=== PATIENT | female | born 1950 | race Caucasian/White ===

== ENCOUNTER 2022-12-08 11:20 | Inpatient (IN) | payer BC, OTHER ==
[~2022-12-08] VITALS: Ht 160 cm; Wt 73.9 kg
[~2022-12-08 11:20] MED LIST: LEVO88TA2 PO; TRIA80OI TP
[2022-12-08 11:31] VITALS: BP_SYST 153; PULSE 106; RESP 22; TEMP 97.5; O2SAT 98
[2022-12-08] MEDS ORDERED: ONDANSETRON 4 MG ODT TAB PO ONE (11:45)
[2022-12-08 12:19] LABS: BASOPHILS # (AUTO) 0.1 K/uL (0.0-0.2); BASOPHILS % (AUTO) 0.3 % (0.0-2.0); EOSINOPHILS # (AUTO) 0.5 K/uL (0.0-0.4); EOSINOPHILS % (AUTO) 2.4 % (0.0-4.0); HEMATOCRIT 42.3 % (36-48); HEMOGLOBIN 13.4 g/dL (12.0-16.0); LYMPHOCYTES # (AUTO) 0.3 K/uL (1.0-5.5); LYMPHOCYTES % (AUTO) 1.2 % (20.5-51.5); MEAN CORPUSCULAR HEMOGLOBIN 28 pg (27-31); MEAN CORPUSCULAR HGB CONC 32 % (32-36); MEAN CORPUSCULAR VOLUME 87 fL (79.0-98.0); MONOCYTES # (AUTO) 0.6 K/uL (0.0-1.0); MONOCYTES % (AUTO) 2.5 % (1.7-9.3); NEUTROPHILS # (AUTO) 20.7 K/uL (1.8-7.7); NEUTROPHILS % (AUTO) 93.6 % (40.0-70.0); PLATELET COUNT (AUTO) 193 K/uL (130-430); RED BLOOD CELL COUNT(AUTO) 4.88 MIL/uL (4.2-6.2); RED CELL DISTRIBUTION WIDTH 13.7 % (9.0-15.0); WHITE BLOOD COUNT (AUTO) 22.1 K/uL (4.8-10.8)
[2022-12-08 12:29] LABS: ANION GAP 10 (5-15); CALCIUM 8.7 mg/dL (8.4-11.0); CARBON DIOXIDE 28 mmol/L (23-29); CHLORIDE 101 mmol/L (98-107); CREATININE 1.45 mg/dL (0.55-1.30); GLUCOSE 182 mg/dL (74-106); POTASSIUM 3.8 mmol/L (3.5-5.1); SODIUM SERUM 139 mmol/L (136-145); UREA NITROGEN, BLOOD 37 mg/dL (8-21)
[2022-12-08 12:48] LABS: ACETONE, SERUM NEGATIVE (NEGATIVE)
[2022-12-08 13:02] LABS: INR 1.2 (0.8-1.2); PROTHROMBIN TIME 12.2 SECS (9.5-12.5)
[2022-12-08 13:07] LABS: ALANINE AMINOTRANSFERASE 6 U/L (12-78); ALBUMIN 3.1 g/dL (3.4-4.8); AMYLASE 19 U/L (0-100); ASPARTATE AMINOTRANSFERASE 13 U/L (10-37); LIPASE 32 U/L (73-393); TOTAL BILIRUBIN 0.6 mg/dL (0.0-1.0); TOTAL PROTEIN, SERUM 6.8 g/dL (6.4-8.3)
[2022-12-08] MEDS ORDERED: PIPERACILLIN/TAZO 4.5GM/DEX-IS 100 ML IV SCH (13:30)
[2022-12-08] MEDS ORDERED: NACL 0.9% 1,000 ML IV ONE (14:15)
[2022-12-08] MEDS ORDERED: D5/0.45 NS 1,000 ML IV ONE (14:15)
[2022-12-08] MEDS ORDERED: MORPHINE 2 MG/ML INJ. SYRINGE IVP ONE (14:15)
[2022-12-08] MEDS ORDERED: ACETAMINOPHEN 650 MG/20.3 ML UDC PO ONE (14:30)
[2022-12-08] MEDS ORDERED: ACETAMINOPHEN 325 MG TABLET PO ONE (14:30)
[2022-12-08 15:08] LABS: BILIRUBIN,URINE 2+ (NEGATIVE); BLOOD, URINE NEGATIVE (NEGATIVE); CLARITY/URINE HAZY (CLEAR); COLOR,URINE AMBER (YELLOW); GLUCOSE,URINE NEGATIVE (NEGATIVE); KETONES,URINE 2+ (NEGATIVE); LEUKOCYTE ESTERASE ,URINE 2+ (NEGATIVE); NITRITE, URINE NEGATIVE (NEGATIVE); PROTEIN URINE 2+ (NEGATIVE)
[2022-12-08 15:10] LABS: BACTERIA,URINE FEW /HPF (None Seen); MUCUS,URINE None Seen /LPF (None Seen); RBC,URINE 0-3 /HPF (0-3)
[2022-12-08] MEDS ORDERED: NALOXONE HCL 0.4 MG/ML AMP (NARCAN) IVP PRN (18:30)
[2022-12-08] MEDS ORDERED: MORPHINE 4 MG INJ. 4 MG/ML VIAL IVP PRN (18:30)
[2022-12-08] MEDS ORDERED: LORazepam 2 MG/ML VIAL IVP PRN (18:30)
[2022-12-08 20:00] VITALS: BP_SYST 111; PULSE 89; RESP 18; TEMP 98.4; O2SAT 96
[2022-12-08] MEDS ORDERED: NON-FORMULARY MEDICATION (Triamcinolone Acetonide 1 APPLIC) TP SCH (21:00)
[2022-12-08] MEDS ORDERED: cefTRIAXone 1 GM VIAL ONE (22:54)
[2022-12-08] MEDS: cefTRIAXone 1 GM in D5W 50 ML IV SCH (23:15)
[2022-12-08] MEDS: ONDANSETRON HCL 4 MG/2 ML VIAL IVP PRN (23:20)
[2022-12-08] MEDS: MORPHINE 2 MG/ML INJ. SYRINGE IVP PRN (23:22)
[2022-12-09] VITALS (7 sets, daily range): BP systolic 103–115; PULSE 83–100; RESP 14–18; TEMP 96.8–99.4; O2SAT 92–100
[2022-12-09 05:21] LABS: BASOPHILS # (AUTO) 0.1 K/uL (0.0-0.2); BASOPHILS % (AUTO) 0.4 % (0.0-2.0); EOSINOPHILS # (AUTO) 0.7 K/uL (0.0-0.4); EOSINOPHILS % (AUTO) 4.9 % (0.0-4.0); HEMOGLOBIN 11.7 g/dL (12.0-16.0); LYMPHOCYTES # (AUTO) 0.3 K/uL (1.0-5.5); LYMPHOCYTES % (AUTO) 1.8 % (20.5-51.5); MEAN CORPUSCULAR HEMOGLOBIN 27 pg (27-31); MEAN CORPUSCULAR HGB CONC 32 % (32-36); MEAN CORPUSCULAR VOLUME 87 fL (79.0-98.0); MONOCYTES # (AUTO) 0.6 K/uL (0.0-1.0); NEUTROPHILS # (AUTO) 12.9 K/uL (1.8-7.7); NEUTROPHILS % (AUTO) 88.9 % (40.0-70.0); PLATELET COUNT (AUTO) 165 K/uL (130-430); RED BLOOD CELL COUNT(AUTO) 4.28 MIL/uL (4.2-6.2); RED CELL DISTRIBUTION WIDTH 13.9 % (9.0-15.0); WHITE BLOOD COUNT (AUTO) 14.6 K/uL (4.8-10.8)
[2022-12-09 05:55] LABS: ANION GAP 10 (5-15); CALCIUM 7.9 mg/dL (8.4-11.0); CARBON DIOXIDE 25 mmol/L (23-29); CHLORIDE 106 mmol/L (98-107); CREATININE 1.73 mg/dL (0.55-1.30); GLUCOSE 115 mg/dL (74-106); PHOSPHORUS 3.8 mg/dL (2.7-4.5); POTASSIUM 3.9 mmol/L (3.5-5.1); SODIUM SERUM 141 mmol/L (136-145); UREA NITROGEN, BLOOD 41 mg/dL (8-21)
[2022-12-09] MEDS: ONDANSETRON HCL 4 MG/2 ML VIAL IVP PRN ×2 (06:49→17:57)
[2022-12-09] MEDS: MORPHINE 2 MG/ML INJ. SYRINGE IVP PRN (06:50)
[2022-12-09] MEDS ORDERED: LR 1,000 ML IV SCH (08:00)
[2022-12-09] MEDS: LIPASE/PROTEASE/AMYLASE 1 CAP PO SCH ×3 (10:22→18:32)
[2022-12-09] MEDS: LR 1,000 ML IV SCH (15:58)
[2022-12-09] MEDS: cefTRIAXone 1 GM in D5W 50 ML IV SCH (21:42)
[2022-12-10] MEDS: LR 1,000 ML IV SCH ×2 (03:28→11:45)
[2022-12-10] MEDS: ONDANSETRON HCL 4 MG/2 ML VIAL IVP PRN (03:37)
[2022-12-10 07:21] LABS: BASOPHILS # (AUTO) 0.1 K/uL (0.0-0.2); BASOPHILS % (AUTO) 0.6 % (0.0-2.0); EOSINOPHILS # (AUTO) 0.7 K/uL (0.0-0.4); EOSINOPHILS % (AUTO) 4.1 % (0.0-4.0); HEMATOCRIT 41.4 % (36-48); LYMPHOCYTES # (AUTO) 0.3 K/uL (1.0-5.5); LYMPHOCYTES % (AUTO) 1.9 % (20.5-51.5); MEAN CORPUSCULAR HEMOGLOBIN 27 pg (27-31); MEAN CORPUSCULAR HGB CONC 31 % (32-36); MEAN CORPUSCULAR VOLUME 87 fL (79.0-98.0); MONOCYTES # (AUTO) 0.3 K/uL (0.0-1.0); NEUTROPHILS # (AUTO) 14.8 K/uL (1.8-7.7); NEUTROPHILS % (AUTO) 91.4 % (40.0-70.0); PLATELET COUNT (AUTO) 201 K/uL (130-430); RED BLOOD CELL COUNT(AUTO) 4.76 MIL/uL (4.2-6.2); WHITE BLOOD COUNT (AUTO) 16.1 K/uL (4.8-10.8)
[2022-12-10 07:27] LABS: ERYTHROCYTE SEDIMENTATION RATE 9 MM/HR (0-20)
[2022-12-10 08:01] VITALS: BP_SYST 95; PULSE 104; RESP 16; TEMP 98; O2SAT 96
[2022-12-10 08:16] LABS: AMYLASE 30 U/L (0-100); ANION GAP 9 (5-15); CARBON DIOXIDE 27 mmol/L (23-29); CHLORIDE 106 mmol/L (98-107); CREATININE 1.76 mg/dL (0.55-1.30); GLUCOSE 104 mg/dL (74-106); LIPASE 76 U/L (73-393); PHOSPHORUS 3.4 mg/dL (2.7-4.5); POTASSIUM 4.1 mmol/L (3.5-5.1); SODIUM SERUM 142 mmol/L (136-145); UREA NITROGEN, BLOOD 38 mg/dL (8-21)
[2022-12-10] MEDS: LIPASE/PROTEASE/AMYLASE 1 CAP PO SCH ×3 (09:08→14:14)
[2022-12-10 12:00] VITALS: BP_SYST 144; PULSE 70; RESP 14; TEMP 96.7; O2SAT 96
[2022-12-10 13:32] VITALS: O2SAT 96
[2022-12-10 16:00] VITALS: BP_SYST 98; PULSE 74; RESP 14; TEMP 96.7; O2SAT 96
[2022-12-10 19:00] VITALS: BP_SYST 105; PULSE 97; RESP 18; TEMP 98.5; O2SAT 96
[2022-12-10 20:00] VITALS: BP_SYST 105; PULSE 97; RESP 18; TEMP 98.5; O2SAT 96
[2022-12-10] MEDS ORDERED: metroNIDAZOLE 500 mg/NS 100 ML IV SCH (21:00)
[2022-12-10] MEDS: cefTRIAXone 1 GM in D5W 50 ML IV SCH (21:04)
[2022-12-11 00:10] VITALS: BP_SYST 108; PULSE 84; RESP 18; TEMP 97; O2SAT 93
[2022-12-11] MEDS: LR 1,000 ML IV SCH ×3 (00:40→17:45)
[2022-12-11 05:19] LABS: BASOPHILS % (AUTO) 0.2 % (0.0-2.0); EOSINOPHILS # (AUTO) 0.7 K/uL (0.0-0.4); HEMATOCRIT 41.3 % (36-48); LYMPHOCYTES # (AUTO) 0.2 K/uL (1.0-5.5); MEAN CORPUSCULAR HEMOGLOBIN 27 pg (27-31); MEAN CORPUSCULAR HGB CONC 31 % (32-36); MEAN CORPUSCULAR VOLUME 87 fL (79.0-98.0); MONOCYTES # (AUTO) 0.4 K/uL (0.0-1.0); MONOCYTES % (AUTO) 1.9 % (1.7-9.3); NEUTROPHILS # (AUTO) 17.4 K/uL (1.8-7.7); NEUTROPHILS % (AUTO) 92.9 % (40.0-70.0); PLATELET COUNT (AUTO) 192 K/uL (130-430); RED BLOOD CELL COUNT(AUTO) 4.78 MIL/uL (4.2-6.2); RED CELL DISTRIBUTION WIDTH 13.8 % (9.0-15.0); WHITE BLOOD COUNT (AUTO) 18.8 K/uL (4.8-10.8)
[2022-12-11] MEDS: MORPHINE 2 MG/ML INJ. SYRINGE IVP PRN (05:25)
[2022-12-11] MEDS: ONDANSETRON HCL 4 MG/2 ML VIAL IVP PRN (05:26)
[2022-12-11 05:55] LABS: ALANINE AMINOTRANSFERASE 3 U/L (12-78); ALBUMIN 2.4 g/dL (3.4-4.8); AMYLASE 14 U/L (0-100); ANION GAP 10 (5-15); ASPARTATE AMINOTRANSFERASE 10 U/L (10-37); CARBON DIOXIDE 27 mmol/L (23-29); CHLORIDE 104 mmol/L (98-107); CREATININE 1.54 mg/dL (0.55-1.30); GLUCOSE 131 mg/dL (74-106); LIPASE 17 U/L (73-393); PHOSPHORUS 2.7 mg/dL (2.7-4.5); POTASSIUM 3.7 mmol/L (3.5-5.1); SODIUM SERUM 141 mmol/L (136-145); TOTAL BILIRUBIN 0.4 mg/dL (0.0-1.0); TOTAL PROTEIN, SERUM 5.7 g/dL (6.4-8.3); UREA NITROGEN, BLOOD 38 mg/dL (8-21)
[2022-12-11 05:56] LABS: ERYTHROCYTE SEDIMENTATION RATE 5 MM/HR (0-20)
[2022-12-11] MEDS: LIPASE/PROTEASE/AMYLASE 1 CAP PO SCH ×3 (08:00→19:00)
[2022-12-11] MEDS ORDERED: METOCLOPRAMIDE HCL 10 MG/2 ML VIAL IVP ONE (08:30)
[2022-12-11 08:37] VITALS: BP_SYST 118; PULSE 82; RESP 16; TEMP 97.2; O2SAT 94
[2022-12-11] MEDS: PIPERACILLIN/TAZO 2.25G/DEX-IS 50 ML IV SCH ×2 (13:23→18:59)
[2022-12-11] MEDS: FLUCONAZOLE 200 mg/ NS 100 ML IV SCH (13:23)
[2022-12-11] MEDS: METOCLOPRAMIDE HCL 10 MG/2 ML VIAL IVP SCH ×2 (15:55→22:03)
[2022-12-11 15:56] LABS: INR 1.4 (0.8-1.2); PROTHROMBIN TIME 13.8 SECS (9.5-12.5)
[2022-12-11 20:00] VITALS: BP_SYST 102; PULSE 98; RESP 16; TEMP 98.4; O2SAT 98
[2022-12-12] VITALS (7 sets, daily range): BP systolic 93–115; PULSE 77–108; RESP 16–18; TEMP 97.1–98.9; O2SAT 94–96
[2022-12-12] MEDS: PIPERACILLIN/TAZO 2.25G/DEX-IS 50 ML IV SCH ×5 (00:19→23:51)
[2022-12-12] MEDS: LR 1,000 ML IV SCH ×3 (00:21→22:41)
[2022-12-12] MEDS: MORPHINE 2 MG/ML INJ. SYRINGE IVP PRN (04:47)
[2022-12-12] MEDS: METOCLOPRAMIDE HCL 10 MG/2 ML VIAL IVP SCH ×3 (05:26→21:24)
[2022-12-12 05:57] LABS: BASOPHILS # (AUTO) 0.2 K/uL (0.0-0.2); BASOPHILS % (AUTO) 0.7 % (0.0-2.0); EOSINOPHILS # (AUTO) 1.1 K/uL (0.0-0.4); EOSINOPHILS % (AUTO) 4.6 % (0.0-4.0); HEMATOCRIT 41.3 % (36-48); HEMOGLOBIN 13.1 g/dL (12.0-16.0); LYMPHOCYTES # (AUTO) 0.2 K/uL (1.0-5.5); LYMPHOCYTES % (AUTO) 0.7 % (20.5-51.5); MEAN CORPUSCULAR HEMOGLOBIN 27 pg (27-31); MEAN CORPUSCULAR HGB CONC 32 % (32-36); MEAN CORPUSCULAR VOLUME 86 fL (79.0-98.0); MONOCYTES # (AUTO) 0.7 K/uL (0.0-1.0); MONOCYTES % (AUTO) 2.9 % (1.7-9.3); NEUTROPHILS # (AUTO) 20.9 K/uL (1.8-7.7); NEUTROPHILS % (AUTO) 91.1 % (40.0-70.0); PLATELET COUNT (AUTO) 227 K/uL (130-430); RED BLOOD CELL COUNT(AUTO) 4.81 MIL/uL (4.2-6.2); RED CELL DISTRIBUTION WIDTH 13.9 % (9.0-15.0)
[2022-12-12 06:09] LABS: ANION GAP 10 (5-15); CALCIUM 8.1 mg/dL (8.4-11.0); CARBON DIOXIDE 26 mmol/L (23-29); CHLORIDE 103 mmol/L (98-107); CREATININE 1.52 mg/dL (0.55-1.30); GLUCOSE 134 mg/dL (74-106); POTASSIUM 3.9 mmol/L (3.5-5.1); SODIUM SERUM 139 mmol/L (136-145); UREA NITROGEN, BLOOD 37 mg/dL (8-21)
[2022-12-12] MEDS: LIPASE/PROTEASE/AMYLASE 1 CAP PO SCH ×3 (08:51→18:13)
[2022-12-12] MEDS: FLUCONAZOLE 200 mg/ NS 100 ML IV SCH (14:45)
[2022-12-12] MEDS ORDERED: fentaNYL CITRATE/PF 100 MCG/2 ML AMP ONE (15:15)
[2022-12-12] MEDS ORDERED: ROCURONIUM BROMIDE 10 MG/ML (ZEMURON) ONE (15:15)
[2022-12-12] MEDS ORDERED: GLYCOPYRROLATE 0.2 MG/ML VIAL ONE (15:15)
[2022-12-12] MEDS ORDERED: NS 100 ML BAG ONE (15:15)
[2022-12-12] MEDS ORDERED: PROPOFOL 200MG/ 20ML VIAL (DIPRIVAN) IV ONE (15:15)
[2022-12-12] MEDS ORDERED: NS 1000 ML IV.SOLN IV ONE (15:15)
[2022-12-12] MEDS ORDERED: LIDOCAINE/EPI 1% 1:100000 20 ML VIAL ONE (15:15)
[2022-12-12] MEDS ORDERED: WATER FOR IRRIGATION,STERILE 1,000 ML IRRIG.SOLN IR ONE (15:15)
[2022-12-12] MEDS ORDERED: MIDAZOLAM HCL 2 MG/2 ML VIAL (VERSED) ONE (15:15)
[2022-12-12] MEDS ORDERED: SEVOFLURANE 15 MIN GAS INH ONE (15:15)
[2022-12-12] MEDS ORDERED: NEOSTIGMINE METHYLSULFATE 1 MG/ML, 10 ML VIAL ONE (15:15)
[2022-12-12] MEDS ORDERED: BUPIVACAINE /PF 0.25% 30 ML VIAL INJ ONE (15:15)
[2022-12-12] MEDS ORDERED: fentaNYL CITRATE/PF 100 MCG/2 ML AMP IVP PRN ×2 (16:00)
[2022-12-12] MEDS ORDERED: METOCLOPRAMIDE HCL 10 MG/2 ML VIAL IVP PRN (16:00)
[2022-12-12] MEDS ORDERED: ONDANSETRON HCL 4 MG/2 ML VIAL IVP PRN (16:00)
[2022-12-12] MEDS ORDERED: HYDROmorphone 1 MG/ML INJ. CARTRIDGE IM PRN (16:45)
[2022-12-12] MEDS: HYDROcodone/ACETAMIN 5-325 MG TAB (NORCO/ VICODIN) PO PRN (18:27)
[2022-12-13] MEDS: HYDROcodone/ACETAMIN 5-325 MG TAB (NORCO/ VICODIN) PO PRN (00:17)
[2022-12-13 00:22] VITALS: BP_SYST 95; PULSE 83; RESP 18; TEMP 97; O2SAT 96
[2022-12-13] MEDS: PIPERACILLIN/TAZO 2.25G/DEX-IS 50 ML IV SCH ×4 (05:13→23:04)
[2022-12-13] MEDS: METOCLOPRAMIDE HCL 10 MG/2 ML VIAL IVP SCH ×3 (05:13→22:12)
[2022-12-13 08:00] VITALS: BP_SYST 115; PULSE 96; RESP 18; TEMP 98.1; O2SAT 92
[2022-12-13] MEDS: LIPASE/PROTEASE/AMYLASE 1 CAP PO SCH ×3 (08:57→18:01)
[2022-12-13] MEDS ORDERED: ENOXAPARIN SODIUM 30 MG/0.3 ML SYRINGE SUBCUT ONE (09:15)
[2022-12-13] MEDS: LR 1,000 ML IV SCH ×2 (11:20→19:45)
[2022-12-13 12:00] VITALS: BP_SYST 120; PULSE 90; RESP 18; TEMP 97.5; O2SAT 94
[2022-12-13 13:47] LABS: BASOPHILS % (AUTO) 0.2 % (0.0-2.0); EOSINOPHILS # (AUTO) 1.2 K/uL (0.0-0.4); EOSINOPHILS % (AUTO) 6.4 % (0.0-4.0); HEMATOCRIT 37.8 % (36-48); HEMOGLOBIN 11.8 g/dL (12.0-16.0); LYMPHOCYTES # (AUTO) 0.2 K/uL (1.0-5.5); LYMPHOCYTES % (AUTO) 1.2 % (20.5-51.5); MEAN CORPUSCULAR HEMOGLOBIN 27 pg (27-31); MEAN CORPUSCULAR HGB CONC 31 % (32-36); MEAN CORPUSCULAR VOLUME 86 fL (79.0-98.0); MONOCYTES # (AUTO) 0.5 K/uL (0.0-1.0); MONOCYTES % (AUTO) 2.7 % (1.7-9.3); NEUTROPHILS # (AUTO) 16.8 K/uL (1.8-7.7); NEUTROPHILS % (AUTO) 89.5 % (40.0-70.0); PLATELET COUNT (AUTO) 181 K/uL (130-430); RED BLOOD CELL COUNT(AUTO) 4.38 MIL/uL (4.2-6.2); RED CELL DISTRIBUTION WIDTH 14.4 % (9.0-15.0); WHITE BLOOD COUNT (AUTO) 18.7 K/uL (4.8-10.8)
[2022-12-13 14:00] LABS: ALANINE AMINOTRANSFERASE 16 U/L (12-78); ALBUMIN 2.2 g/dL (3.4-4.8); ANION GAP 11 (5-15); ASPARTATE AMINOTRANSFERASE 22 U/L (10-37); CALCIUM 7.5 mg/dL (8.4-11.0); CARBON DIOXIDE 24 mmol/L (23-29); CHLORIDE 101 mmol/L (98-107); CREATININE 1.68 mg/dL (0.55-1.30); GLUCOSE 153 mg/dL (74-106); POTASSIUM 3.8 mmol/L (3.5-5.1); SODIUM SERUM 136 mmol/L (136-145); TOTAL BILIRUBIN 0.5 mg/dL (0.0-1.0); UREA NITROGEN, BLOOD 38 mg/dL (8-21)
[2022-12-13] MEDS: FLUCONAZOLE 200 mg/ NS 100 ML IV SCH (14:03)
[2022-12-13 16:00] VITALS: BP_SYST 117; PULSE 92; RESP 18; TEMP 97.9; O2SAT 94
[2022-12-13 19:00] VITALS: BP_SYST 99; PULSE 103; RESP 16; TEMP 98.2; O2SAT 94
[2022-12-13 20:00] VITALS: BP_SYST 99; PULSE 103; RESP 16; TEMP 98.2; O2SAT 94
[2022-12-14 00:17] VITALS: BP_SYST 107; PULSE 89; RESP 18; TEMP 96.5; O2SAT 93
[2022-12-14] MEDS: LR 1,000 ML IV SCH (03:37)
[2022-12-14 04:07] LABS: QUANTIFERON TB GOLD Indeterminate (Negative)
[2022-12-14 04:33] LABS: BASOPHILS # (AUTO) 0.1 K/uL (0.0-0.2); BASOPHILS % (AUTO) 0.4 % (0.0-2.0); EOSINOPHILS # (AUTO) 1.1 K/uL (0.0-0.4); EOSINOPHILS % (AUTO) 6.2 % (0.0-4.0); HEMATOCRIT 37.2 % (36-48); HEMOGLOBIN 11.8 g/dL (12.0-16.0); LYMPHOCYTES # (AUTO) 0.2 K/uL (1.0-5.5); LYMPHOCYTES % (AUTO) 1.1 % (20.5-51.5); MEAN CORPUSCULAR HEMOGLOBIN 27 pg (27-31); MEAN CORPUSCULAR HGB CONC 32 % (32-36); MEAN CORPUSCULAR VOLUME 86 fL (79.0-98.0); MONOCYTES # (AUTO) 0.4 K/uL (0.0-1.0); MONOCYTES % (AUTO) 2.5 % (1.7-9.3); NEUTROPHILS # (AUTO) 15.9 K/uL (1.8-7.7); NEUTROPHILS % (AUTO) 89.8 % (40.0-70.0); PLATELET COUNT (AUTO) 188 K/uL (130-430); RED BLOOD CELL COUNT(AUTO) 4.34 MIL/uL (4.2-6.2); RED CELL DISTRIBUTION WIDTH 14.3 % (9.0-15.0); WHITE BLOOD COUNT (AUTO) 17.7 K/uL (4.8-10.8)
[2022-12-14 04:53] LABS: ANION GAP 10 (5-15); CALCIUM 7.3 mg/dL (8.4-11.0); CARBON DIOXIDE 25 mmol/L (23-29); CHLORIDE 102 mmol/L (98-107); CREATININE 1.42 mg/dL (0.55-1.30); GLUCOSE 118 mg/dL (74-106); POTASSIUM 3.9 mmol/L (3.5-5.1); SODIUM SERUM 137 mmol/L (136-145); UREA NITROGEN, BLOOD 37 mg/dL (8-21)
[2022-12-14] MEDS: PIPERACILLIN/TAZO 2.25G/DEX-IS 50 ML IV SCH ×2 (06:48→11:24)
[2022-12-14] MEDS: METOCLOPRAMIDE HCL 10 MG/2 ML VIAL IVP SCH ×2 (06:49→16:40)
[2022-12-14 08:00] VITALS: BP_SYST 109; PULSE 100; RESP 16; TEMP 96.5; O2SAT 94
[2022-12-14] MEDS: LIPASE/PROTEASE/AMYLASE 1 CAP PO SCH ×2 (08:05→12:25)
[2022-12-14] MEDS ORDERED: ENOXAPARIN SODIUM 30 MG/0.3 ML SYRINGE SUBCUT SCH (09:00)
[2022-12-14 12:30] VITALS: BP_SYST 116; PULSE 97; RESP 18; TEMP 97.5; O2SAT 96
[2022-12-14] MEDS: FLUCONAZOLE 200 mg/ NS 100 ML IV SCH (12:42)
[2022-12-14 12:56] VITALS: O2SAT 94
[2022-12-14] MEDS ORDERED: FLUC100T41 PO (14:19)
[2022-12-14 17:44] VITALS: BP_SYST 109; PULSE 107; RESP 16; TEMP 96.5
[2022-12-15 17:06] LABS: COCCIDIOIDES AB IGG 0.1 IV (<=0.9)
== END 2022-12-14 18:10 | disposition home or self-care (01) | DRG 853 ==
LOC: SED 11:20 → SMU 14:13
PROVIDERS: ADMIT Specialist; ATTEND Specialist
PROC: 0DNU4ZZ Release Omentum, Percutaneous Endoscopic Approach (ICD-10-PCS; 2022-12-12)
PROC: BF13YZZ Fluoroscopy of Gallbladder and Bile Ducts using Other Contrast (ICD-10-PCS; 2022-12-12)
PROC: 0FT44ZZ Resection of Gallbladder, Percutaneous Endoscopic Approach (ICD-10-PCS; principal; 2022-12-12 15:35)
DX: A41.9 Sepsis, unspecified organism (principal); K85.10 Biliary acute pancreatitis without necrosis or infection; N17.0 Acute kidney failure with tubular necrosis; N39.0 Urinary tract infection, site not specified; K80.00 Calculus of gallbladder with acute cholecystitis without obstruction; E03.9 Hypothyroidism, unspecified; E83.41 Hypermagnesemia; E83.51 Hypocalcemia; E83.52 Hypercalcemia; R59.1 Generalized enlarged lymph nodes; R73.9 Hyperglycemia, unspecified; Z88.8 Allergy status to other drugs, medicaments and biological substances
CPT/HCPCS: 36415; 70490; 71045; 71250-TC; 74181; 76000; 76376; 76700-TC; 78226; 80048; 80053; 81000; 82009; 82150; 83605; 83615; 83690; 83735; 84100; 84484; 85025; 85610-TC; 85651-TC; 85730-TC; 86301; 86480; 86635; 87040; 87081; 87086; 87305; 88304; 93005; 97110-GP; 97116-GP; 97530-GP; 99285; A9537; C1727; C1758; J0696; J1450; J1650; J2270; J2405; J2543; J2704; J2710; J2765; J3010; J3465; J3490; J7030; J7060; J7120; Q0162; Q9967

== ENCOUNTER 2023-01-05 11:31 | Emergency (ER) | payer OTHER ==
[~2023-01-05] VITALS: Ht 162.6 cm; Wt 72.6 kg
[~2023-01-05 11:31] MED LIST changes: +FLUC100T41 PO; -TRIA80OI TP
[2023-01-05 12:28] VITALS: BP_SYST 121; PULSE 105; RESP 18; TEMP 97.9; O2SAT 97
[2023-01-05] MEDS ORDERED: NACL 0.9% 1,000 ML IV ONE (12:30)
[2023-01-05] MEDS ORDERED: HYDR200T80 PO (12:37)
[2023-01-05] MEDS ORDERED: PRED20TA PO (14:03)
[2023-01-05] MEDS ORDERED: IBUP-1969 PO (14:03)
[2023-01-05 15:15] VITALS: BP_SYST 104; PULSE 99; RESP 22; TEMP 97.9; O2SAT 95
== END 2023-01-05 15:17 | disposition home or self-care (01) ==
LOC: SED 11:31
DX: J02.9 Acute pharyngitis, unspecified (principal); R00.2 Palpitations; R05.9 Cough, unspecified; R42 Dizziness and giddiness; Z88.1 Allergy status to other antibiotic agents; Z91.012 Allergy to eggs; Z79.899 Other long term (current) drug therapy
CPT/HCPCS: 99283; 96360; 93005; J7030

== ENCOUNTER 2023-01-12 14:43 | Inpatient (IN) | payer OTHER ==
[~2023-01-12] VITALS: Ht 160 cm; Wt 86.7 kg
[~2023-01-12 14:43] MED LIST changes: +HYDR200T80 PO; +IBUP-1969 PO; +PRED20TA PO
[2023-01-12 15:04] VITALS: BP_SYST 127; PULSE 86; RESP 18; TEMP 98.7
[2023-01-12 15:55] LABS: BASOPHILS # (AUTO) 0.1 K/uL (0.0-0.2); BASOPHILS % (AUTO) 0.9 % (0.0-2.0); EOSINOPHILS # (AUTO) 0.9 K/uL (0.0-0.4); EOSINOPHILS % (AUTO) 8.2 % (0.0-4.0); HEMATOCRIT 34.2 % (36-48); LYMPHOCYTES # (AUTO) 0.7 K/uL (1.0-5.5); LYMPHOCYTES % (AUTO) 6.1 % (20.5-51.5); MEAN CORPUSCULAR HEMOGLOBIN 27 pg (27-31); MEAN CORPUSCULAR HGB CONC 32 % (32-36); MEAN CORPUSCULAR VOLUME 83 fL (79.0-98.0); MONOCYTES # (AUTO) 0.3 K/uL (0.0-1.0); MONOCYTES % (AUTO) 2.5 % (1.7-9.3); NEUTROPHILS # (AUTO) 9.4 K/uL (1.8-7.7); NEUTROPHILS % (AUTO) 82.3 % (40.0-70.0); PLATELET COUNT (AUTO) 147 K/uL (130-430); RED BLOOD CELL COUNT(AUTO) 4.12 MIL/uL (4.2-6.2); RED CELL DISTRIBUTION WIDTH 16.3 % (9.0-15.0); WHITE BLOOD COUNT (AUTO) 11.5 K/uL (4.8-10.8)
[2023-01-12 16:04] LABS: ANION GAP 6 (5-15); CALCIUM 8.4 mg/dL (8.4-11.0); CARBON DIOXIDE 30 mmol/L (23-29); CHLORIDE 102 mmol/L (98-107); CREATININE 0.93 mg/dL (0.55-1.30); GLUCOSE 131 mg/dL (74-106); SODIUM SERUM 138 mmol/L (136-145); UREA NITROGEN, BLOOD 20 mg/dL (8-21)
[2023-01-12 16:06] LABS: INR 1.1 (0.8-1.2); PROTHROMBIN TIME 11.7 SECS (9.5-12.5)
[2023-01-12 16:09] LABS: ALANINE AMINOTRANSFERASE 12 U/L (12-78); ALBUMIN 2.8 g/dL (3.4-4.8); ASPARTATE AMINOTRANSFERASE 11 U/L (10-37); LIPASE 57 U/L (73-393); TOTAL BILIRUBIN 0.6 mg/dL (0.0-1.0); TOTAL PROTEIN, SERUM 5.8 g/dL (6.4-8.3)
[2023-01-12 17:37] LABS: BILIRUBIN,URINE NEGATIVE (NEGATIVE); BLOOD, URINE NEGATIVE (NEGATIVE); CLARITY/URINE Clear (CLEAR); COLOR,URINE YELLOW (YELLOW); GLUCOSE,URINE NEGATIVE (NEGATIVE); KETONES,URINE NEGATIVE (NEGATIVE); LEUKOCYTE ESTERASE ,URINE NEGATIVE (NEGATIVE); NITRITE, URINE NEGATIVE (NEGATIVE); PROTEIN URINE NEGATIVE (NEGATIVE); UROBILINOGEN,URINE 0.2 (0.2-1.0)
[2023-01-12] MEDS ORDERED: LEVO112T5 PO (18:19)
[2023-01-12] MEDS ORDERED: IBUP-1969 PO (18:19)
[2023-01-12] MEDS ORDERED: HYDR200T38 PO (18:19)
[2023-01-12] MEDS ORDERED: FURO20TA4 PO (18:19)
[2023-01-12] MEDS ORDERED: ONDA-8 PO (18:20)
[2023-01-12 20:00] VITALS: BP_SYST 167; PULSE 72; RESP 17; TEMP 98.2
[2023-01-12] MEDS ORDERED: HEPARIN SODIUM,PORCINE 5,000 UNITS/ML VIAL IVP ONE (20:00)
[2023-01-12] MEDS ORDERED: HEPARIN 25,000 UNITS/D5W 250ML 250 ML IV ONE (20:00)
[2023-01-12 22:28] VITALS: BP_SYST 157; PULSE 72; RESP 16; TEMP 98.2
[2023-01-13 00:02] VITALS: BP_SYST 160; PULSE 71; RESP 14; TEMP 96.3; O2SAT 93
[2023-01-13] MEDS ORDERED: HEPARIN SODIUM, PORCINE 10,000 UNITS/ 10 ML VIAL IV ONE (04:30)
[2023-01-13] MEDS ORDERED: HEPARIN SODIUM,PORCINE 5,000 UNITS/ML VIAL ONE (04:52)
[2023-01-13] MEDS ORDERED: HEPARIN SODIUM,PORCINE 5,000 UNITS/ML VIAL SUBCUT ONE (05:00)
[2023-01-13] MEDS: HEPARIN 25,000 UNITS/D5W 250ML 250 ML IV PRN ×5 (05:47→20:11)
[2023-01-13] MEDS ORDERED: HEPARIN SODIUM,PORCINE 5,000 UNITS/ML VIAL IVP ONE (06:00)
[2023-01-13 08:00] VITALS: BP_SYST 158; PULSE 76; RESP 20; TEMP 98.4; O2SAT 95
[2023-01-13] MEDS ORDERED: HEPARIN 25,000 UNITS/D5W 250ML 250 ML IV PRN (10:00)
[2023-01-13] MEDS ORDERED: iohexoL 350 mgI/mL, 100 ML INFUS..BTL IV ONE (10:03)
[2023-01-13] MEDS: ACETAMINOPHEN 500 MG TABLET PO PRN ×2 (10:25→22:07)
[2023-01-13] MEDS ORDERED: HEPARIN SODIUM,PORCINE 2000 UNITS/0.4 ML BOLUS IVP PRN (10:30)
[2023-01-13] MEDS ORDERED: HEPARIN SODIUM,PORCINE 3000 UNITS/0.6 ML BOLUS IVP PRN (10:30)
[2023-01-13] MEDS ORDERED: *HEPARIN PER PHARMACY XX PRN (10:30)
[2023-01-13 11:30] VITALS: BP_SYST 141; PULSE 78; RESP 20; TEMP 97.9; O2SAT 94
[2023-01-13 18:25] VITALS: BP_SYST 133; PULSE 82; RESP 20; TEMP 99.4; O2SAT 94
[2023-01-13 19:30] VITALS: O2SAT 100; O2SAT 4
[2023-01-13 19:40] VITALS: BP_SYST 137; BP_SYST 142; PULSE 86; PULSE 92; RESP 16; RESP 18; TEMP 97; TEMP 97.6; O2SAT 100; O2SAT 93
[2023-01-14] VITALS: BP_SYST 149; PULSE 68; RESP 18; TEMP 97.9; O2SAT 93
[2023-01-14] MEDS: ACETAMINOPHEN 500 MG TABLET PO PRN (05:29)
[2023-01-14 07:22] LABS: BASOPHILS # (AUTO) 0.1 K/uL (0.0-0.2); EOSINOPHILS # (AUTO) 1.1 K/uL (0.0-0.4); EOSINOPHILS % (AUTO) 9.3 % (0.0-4.0); HEMATOCRIT 34.9 % (36-48); HEMOGLOBIN 11.2 g/dL (12.0-16.0); LYMPHOCYTES # (AUTO) 0.6 K/uL (1.0-5.5); LYMPHOCYTES % (AUTO) 5.2 % (20.5-51.5); MEAN CORPUSCULAR HEMOGLOBIN 27 pg (27-31); MEAN CORPUSCULAR HGB CONC 32 % (32-36); MEAN CORPUSCULAR VOLUME 83 fL (79.0-98.0); MONOCYTES # (AUTO) 0.2 K/uL (0.0-1.0); MONOCYTES % (AUTO) 1.8 % (1.7-9.3); NEUTROPHILS # (AUTO) 9.8 K/uL (1.8-7.7); NEUTROPHILS % (AUTO) 82.7 % (40.0-70.0); PLATELET COUNT (AUTO) 133 K/uL (130-430); RED BLOOD CELL COUNT(AUTO) 4.19 MIL/uL (4.2-6.2); RED CELL DISTRIBUTION WIDTH 16.7 % (9.0-15.0); WHITE BLOOD COUNT (AUTO) 11.9 K/uL (4.8-10.8)
[2023-01-14 07:28] LABS: ANION GAP 6 (5-15); CALCIUM 8.4 mg/dL (8.4-11.0); CARBON DIOXIDE 31 mmol/L (23-29); CHLORIDE 101 mmol/L (98-107); CREATININE 0.74 mg/dL (0.55-1.30); GLUCOSE 114 mg/dL (74-106); LACTATE DEHYDROGENASE 272 U/L (81-234); POTASSIUM 3.6 mmol/L (3.5-5.1); SODIUM SERUM 138 mmol/L (136-145); UREA NITROGEN, BLOOD 8 mg/dL (8-21)
[2023-01-14 07:57] VITALS: BP_SYST 150; PULSE 78; RESP 16; TEMP 97.9; O2SAT 78
[2023-01-14 08:00] VITALS: O2SAT 96
[2023-01-14] MEDS: HEPARIN 25,000 UNITS/D5W 250ML 250 ML IV PRN ×3 (09:54→17:09)
[2023-01-14 12:00] VITALS: BP_SYST 155; PULSE 66; RESP 18; TEMP 98.7; O2SAT 98
[2023-01-14 16:00] VITALS: BP_SYST 148; PULSE 68; RESP 18; TEMP 98.3; O2SAT 99
[2023-01-14 19:25] VITALS: BP_SYST 136; PULSE 84; RESP 18; TEMP 96.8; O2SAT 97; O2SAT 98
[2023-01-15] VITALS (7 sets, daily range): BP systolic 113–138; PULSE 70–88; RESP 16–19; TEMP 97.6–98.8; O2SAT 96–99
[2023-01-15] MEDS: HEPARIN 25,000 UNITS/D5W 250ML 250 ML IV PRN ×3 (01:10→10:37)
[2023-01-15 08:03] LABS: BASOPHILS # (AUTO) 0.1 K/uL (0.0-0.2); BASOPHILS % (AUTO) 0.7 % (0.0-2.0); EOSINOPHILS # (AUTO) 1.8 K/uL (0.0-0.4); HEMATOCRIT 33.8 % (36-48); HEMOGLOBIN 10.8 g/dL (12.0-16.0); LYMPHOCYTES # (AUTO) 0.6 K/uL (1.0-5.5); LYMPHOCYTES % (AUTO) 4.3 % (20.5-51.5); MEAN CORPUSCULAR HEMOGLOBIN 27 pg (27-31); MEAN CORPUSCULAR HGB CONC 32 % (32-36); MEAN CORPUSCULAR VOLUME 83 fL (79.0-98.0); MONOCYTES # (AUTO) 0.3 K/uL (0.0-1.0); MONOCYTES % (AUTO) 2.4 % (1.7-9.3); NEUTROPHILS # (AUTO) 11.4 K/uL (1.8-7.7); NEUTROPHILS % (AUTO) 79.6 % (40.0-70.0); PLATELET COUNT (AUTO) 133 K/uL (130-430); RED BLOOD CELL COUNT(AUTO) 4.08 MIL/uL (4.2-6.2); RED CELL DISTRIBUTION WIDTH 16.8 % (9.0-15.0); WHITE BLOOD COUNT (AUTO) 14.3 K/uL (4.8-10.8)
[2023-01-15 08:09] LABS: ANION GAP 5 (5-15); CALCIUM 7.9 mg/dL (8.4-11.0); CARBON DIOXIDE 30 mmol/L (23-29); CHLORIDE 101 mmol/L (98-107); CREATININE 0.67 mg/dL (0.55-1.30); GLUCOSE 111 mg/dL (74-106); POTASSIUM 3.6 mmol/L (3.5-5.1); SODIUM SERUM 136 mmol/L (136-145); UREA NITROGEN, BLOOD 6 mg/dL (8-21)
[2023-01-15] MEDS: guaiFENesin/DEXTROMETHORPHAN 10 ML UDC PO PRN (23:15)
[2023-01-16 00:59] VITALS: BP_SYST 134; PULSE 74; RESP 16; TEMP 98.5; O2SAT 99
[2023-01-16 07:44] LABS: BASOPHILS # (AUTO) 0.1 K/uL (0.0-0.2); BASOPHILS % (AUTO) 0.8 % (0.0-2.0); EOSINOPHILS # (AUTO) 1.9 K/uL (0.0-0.4); EOSINOPHILS % (AUTO) 14.9 % (0.0-4.0); HEMOGLOBIN 10.2 g/dL (12.0-16.0); LYMPHOCYTES # (AUTO) 0.4 K/uL (1.0-5.5); LYMPHOCYTES % (AUTO) 3.1 % (20.5-51.5); MEAN CORPUSCULAR HEMOGLOBIN 27 pg (27-31); MEAN CORPUSCULAR HGB CONC 32 % (32-36); MEAN CORPUSCULAR VOLUME 84 fL (79.0-98.0); MONOCYTES # (AUTO) 0.3 K/uL (0.0-1.0); MONOCYTES % (AUTO) 2.5 % (1.7-9.3); NEUTROPHILS # (AUTO) 10.3 K/uL (1.8-7.7); NEUTROPHILS % (AUTO) 78.7 % (40.0-70.0); PLATELET COUNT (AUTO) 121 K/uL (130-430); RED BLOOD CELL COUNT(AUTO) 3.84 MIL/uL (4.2-6.2); RED CELL DISTRIBUTION WIDTH 17.3 % (9.0-15.0)
[2023-01-16 07:48] LABS: ERYTHROCYTE SEDIMENTATION RATE 8 MM/HR (0-20)
[2023-01-16 07:52] LABS: ANION GAP 7 (5-15); CALCIUM 7.6 mg/dL (8.4-11.0); CARBON DIOXIDE 29 mmol/L (23-29); CHLORIDE 102 mmol/L (98-107); GLUCOSE 109 mg/dL (74-106); POTASSIUM 3.1 mmol/L (3.5-5.1); SODIUM SERUM 138 mmol/L (136-145); UREA NITROGEN, BLOOD 5 mg/dL (8-21)
[2023-01-16 08:00] VITALS: BP_SYST 122; PULSE 78; RESP 18; TEMP 98.6; O2SAT 99
[2023-01-16] MEDS ORDERED: POTASSIUM CHLORIDE 20 MEQ TAB.PRT.SR PO ONE (10:15)
[2023-01-16] MEDS ORDERED: DIPHENHYDRAMINE INJ 50 MG/ML VIAL ONE (10:45)
[2023-01-16] MEDS ORDERED: SEVOFLURANE 15 MIN GAS INH ONE (10:45)
[2023-01-16] MEDS ORDERED: DEXAMETHASONE SOD PHOSPHATE 4 MG/ML VIAL ONE (10:45)
[2023-01-16] MEDS ORDERED: NS 1000 ML IV.SOLN IV ONE (10:45)
[2023-01-16] MEDS ORDERED: NS IRRIG SOLN 1000 ML IR ONE (10:45)
[2023-01-16] MEDS ORDERED: ONDANSETRON HCL 4 MG/2 ML VIAL ONE (10:45)
[2023-01-16] MEDS ORDERED: ETOMIDATE 20 MG/ 10 ML VIAL (AMIDATE) ONE (10:45)
[2023-01-16] MEDS ORDERED: ONDANSETRON HCL 4 MG/2 ML VIAL IVP PRN (11:45)
[2023-01-16] MEDS ORDERED: NALOXONE HCL 0.4 MG/ML AMP (NARCAN) IVP PRN (11:45)
[2023-01-16] MEDS ORDERED: HYDROmorphone 1 MG/ML INJ. CARTRIDGE IVP PRN (11:45)
[2023-01-16] MEDS ORDERED: ACETAMINOPHEN I.V. 1000 MG 100 ML IV ONE (11:45)
[2023-01-16] MEDS ORDERED: METOCLOPRAMIDE HCL 10 MG/2 ML VIAL IVP PRN (11:45)
[2023-01-16] MEDS: HEPARIN 25,000 UNITS/D5W 250ML 250 ML IV PRN ×3 (17:27→23:29)
[2023-01-16 17:30] VITALS: BP_SYST 151; PULSE 72; RESP 18; TEMP 97.9; O2SAT 98
[2023-01-16 20:00] VITALS: BP_SYST 119; PULSE 79; RESP 16; TEMP 98.1; O2SAT 98
[2023-01-16] MEDS: guaiFENesin/DEXTROMETHORPHAN 10 ML UDC PO PRN (21:50)
[2023-01-16] MEDS ORDERED: HEPARIN SODIUM,PORCINE 5,000 UNITS/ML VIAL IVP ONE (23:15)
[2023-01-17 01:00] VITALS: BP_SYST 131; PULSE 63; RESP 15; TEMP 98.2; O2SAT 97
[2023-01-17 05:53] LABS: BASOPHILS # (AUTO) 0.2 K/uL (0.0-0.2); EOSINOPHILS # (AUTO) 1.2 K/uL (0.0-0.4); EOSINOPHILS % (AUTO) 7.7 % (0.0-4.0); HEMATOCRIT 30.9 % (36-48); HEMOGLOBIN 9.9 g/dL (12.0-16.0); LYMPHOCYTES # (AUTO) 0.5 K/uL (1.0-5.5); LYMPHOCYTES % (AUTO) 3.5 % (20.5-51.5); MEAN CORPUSCULAR HEMOGLOBIN 27 pg (27-31); MEAN CORPUSCULAR HGB CONC 32 % (32-36); MEAN CORPUSCULAR VOLUME 84 fL (79.0-98.0); MONOCYTES # (AUTO) 0.4 K/uL (0.0-1.0); MONOCYTES % (AUTO) 2.5 % (1.7-9.3); NEUTROPHILS # (AUTO) 13.5 K/uL (1.8-7.7); NEUTROPHILS % (AUTO) 85.3 % (40.0-70.0); PLATELET COUNT (AUTO) 143 K/uL (130-430); RED BLOOD CELL COUNT(AUTO) 3.68 MIL/uL (4.2-6.2); RED CELL DISTRIBUTION WIDTH 17.3 % (9.0-15.0); WHITE BLOOD COUNT (AUTO) 15.8 K/uL (4.8-10.8)
[2023-01-17 06:30] LABS: ALANINE AMINOTRANSFERASE 6 U/L (12-78); ALBUMIN 2.4 g/dL (3.4-4.8); ANION GAP 6 (5-15); ASPARTATE AMINOTRANSFERASE 10 U/L (10-37); CALCIUM 7.4 mg/dL (8.4-11.0); CARBON DIOXIDE 28 mmol/L (23-29); CHLORIDE 104 mmol/L (98-107); CREATININE 0.54 mg/dL (0.55-1.30); GLUCOSE 91 mg/dL (74-106); POTASSIUM 3.7 mmol/L (3.5-5.1); SODIUM SERUM 138 mmol/L (136-145); TOTAL BILIRUBIN 0.6 mg/dL (0.0-1.0); TOTAL PROTEIN, SERUM 5.2 g/dL (6.4-8.3); UREA NITROGEN, BLOOD 6 mg/dL (8-21)
[2023-01-17 08:00] VITALS: O2SAT 98
[2023-01-17 08:25] VITALS: BP_SYST 104; PULSE 86; RESP 16; TEMP 98.8; O2SAT 98
[2023-01-17] MEDS: HEPARIN 25,000 UNITS/D5W 250ML 250 ML IV PRN (08:48)
[2023-01-17] MEDS ORDERED: APIXABAN 2.5 MG TABLET PO ONE (09:45)
[2023-01-17 12:00] VITALS: BP_SYST 124; PULSE 72; RESP 15; TEMP 98.4; O2SAT 98
[2023-01-17 16:06] VITALS: BP_SYST 114; PULSE 85; RESP 16; TEMP 98.7; O2SAT 97
[2023-01-17 19:35] VITALS: BP_SYST 142; PULSE 78; RESP 18; TEMP 98.2; O2SAT 93
[2023-01-17] MEDS: guaiFENesin/DEXTROMETHORPHAN 10 ML UDC PO PRN (21:24)
[2023-01-17] MEDS: APIXABAN 2.5 MG TABLET PO SCH (21:29)
[2023-01-18] VITALS: BP_SYST 124; PULSE 83; RESP 16; TEMP 97.3; O2SAT 94
[2023-01-18] MEDS: ACETAMINOPHEN 500 MG TABLET PO PRN (01:01)
[2023-01-18 02:22] LABS: BILIRUBIN,URINE NEGATIVE (NEGATIVE); COLOR,URINE YELLOW (YELLOW); GLUCOSE,URINE NEGATIVE (NEGATIVE); LEUKOCYTE ESTERASE ,URINE 2+ (NEGATIVE); NITRITE, URINE NEGATIVE (NEGATIVE); PROTEIN URINE 1+ (NEGATIVE); UROBILINOGEN,URINE 0.2 (0.2-1.0)
[2023-01-18 02:36] LABS: BLOOD, URINE TRACE (NEGATIVE); CLARITY/URINE SLIGHTLY CLOUDY (CLEAR); KETONES,URINE TRACE (NEGATIVE)
[2023-01-18 02:37] LABS: BACTERIA,URINE MODERATE /HPF (None Seen); WBC,URINE 50-80 /HPF (0-3)
[2023-01-18] MEDS: guaiFENesin/DEXTROMETHORPHAN 10 ML UDC PO PRN ×2 (04:34→21:31)
[2023-01-18 05:27] LABS: ERYTHROCYTE SEDIMENTATION RATE 4 MM/HR (0-20)
[2023-01-18 05:40] LABS: ANION GAP 9 (5-15); CALCIUM 7.3 mg/dL (8.4-11.0); CARBON DIOXIDE 28 mmol/L (23-29); CHLORIDE 103 mmol/L (98-107); GLUCOSE 93 mg/dL (74-106); POTASSIUM 3.4 mmol/L (3.5-5.1); SODIUM SERUM 140 mmol/L (136-145); UREA NITROGEN, BLOOD 5 mg/dL (8-21)
[2023-01-18 05:44] LABS: BASOPHILS # (AUTO) 0.1 K/uL (0.0-0.2); BASOPHILS % (AUTO) 0.8 % (0.0-2.0); EOSINOPHILS # (AUTO) 1.9 K/uL (0.0-0.4); EOSINOPHILS % (AUTO) 11.2 % (0.0-4.0); HEMATOCRIT 29.2 % (36-48); HEMOGLOBIN 9.3 g/dL (12.0-16.0); LYMPHOCYTES # (AUTO) 0.6 K/uL (1.0-5.5); LYMPHOCYTES % (AUTO) 3.9 % (20.5-51.5); MEAN CORPUSCULAR HEMOGLOBIN 27 pg (27-31); MEAN CORPUSCULAR HGB CONC 32 % (32-36); MEAN CORPUSCULAR VOLUME 84 fL (79.0-98.0); MONOCYTES # (AUTO) 0.4 K/uL (0.0-1.0); MONOCYTES % (AUTO) 2.4 % (1.7-9.3); NEUTROPHILS # (AUTO) 13.5 K/uL (1.8-7.7); NEUTROPHILS % (AUTO) 81.7 % (40.0-70.0); PLATELET COUNT (AUTO) 163 K/uL (130-430); RED BLOOD CELL COUNT(AUTO) 3.47 MIL/uL (4.2-6.2); RED CELL DISTRIBUTION WIDTH 17.3 % (9.0-15.0); WHITE BLOOD COUNT (AUTO) 16.5 K/uL (4.8-10.8)
[2023-01-18 07:40] VITALS: BP_SYST 157; PULSE 92; RESP 16; TEMP 100; O2SAT 97
[2023-01-18] MEDS: APIXABAN 2.5 MG TABLET PO SCH ×2 (08:23→21:28)
[2023-01-18 09:30] VITALS: O2SAT 97
[2023-01-18] MEDS ORDERED: CIPROFLOXACIN LACT 200 MG/D5W 100 ML IV SCH (10:15)
[2023-01-18] MEDS ORDERED: POTASSIUM CHLORIDE 20 MEQ TAB.PRT.SR PO ONE (10:15)
[2023-01-18] MEDS ORDERED: CIPROFLOXACIN LACT 200 MG/D5W 100 ML IV ONE (11:00)
[2023-01-18 11:41] VITALS: BP_SYST 128; PULSE 89; RESP 18; TEMP 99.1; O2SAT 92
[2023-01-18 18:36] VITALS: BP_SYST 122; PULSE 96; RESP 18; TEMP 98.5; O2SAT 96
[2023-01-18 20:00] VITALS: BP_SYST 135; PULSE 85; RESP 18; TEMP 99.1; O2SAT 94
[2023-01-18] MEDS: CIPROFLOXACIN LACT 200 MG/D5W 100 ML IV SCH (21:27)
[2023-01-19] VITALS (7 sets, daily range): BP systolic 105–157; PULSE 78–97; RESP 16–24; TEMP 98.4–99.3; O2SAT 94–99
[2023-01-19] MEDS: guaiFENesin/DEXTROMETHORPHAN 10 ML UDC PO PRN (05:49)
[2023-01-19 07:03] LABS: HEMOGLOBIN 9.9 g/dL (12.0-16.0); MEAN CORPUSCULAR HEMOGLOBIN 27 pg (27-31); MEAN CORPUSCULAR HGB CONC 32 % (32-36); MEAN CORPUSCULAR VOLUME 84 fL (79.0-98.0); PLATELET COUNT (AUTO) 191 K/uL (130-430); RED CELL DISTRIBUTION WIDTH 17.7 % (9.0-15.0); WHITE BLOOD COUNT (AUTO) 24.1 K/uL (4.8-10.8)
[2023-01-19 07:40] LABS: ALBUMIN 2.6 g/dL (3.4-4.8); ANION GAP 6 (5-15); ASPARTATE AMINOTRANSFERASE 10 U/L (10-37); CALCIUM 7.6 mg/dL (8.4-11.0); CARBON DIOXIDE 29 mmol/L (23-29); CHLORIDE 103 mmol/L (98-107); CREATININE 0.58 mg/dL (0.55-1.30); GLUCOSE 111 mg/dL (74-106); POTASSIUM 3.7 mmol/L (3.5-5.1); SODIUM SERUM 138 mmol/L (136-145); TOTAL BILIRUBIN 0.7 mg/dL (0.0-1.0); TOTAL PROTEIN, SERUM 5.5 g/dL (6.4-8.3); UREA NITROGEN, BLOOD 4 mg/dL (8-21)
[2023-01-19 07:51] LABS: ERYTHROCYTE SEDIMENTATION RATE 11 MM/HR (0-20)
[2023-01-19 08:20] LABS: ALANINE AMINOTRANSFERASE 5 U/L (12-78)
[2023-01-19] MEDS: APIXABAN 2.5 MG TABLET PO SCH ×2 (08:46→20:47)
[2023-01-19] MEDS: CIPROFLOXACIN LACT 200 MG/D5W 100 ML IV SCH ×2 (09:18→21:02)
[2023-01-19 09:35] LABS: ANISOCYTOSIS 1+; BAND % (MANUAL) 19 % (0-6); BASOPHILS % (MANUAL) 0 % (0-2); EOSINOPHILS % (MANUAL) 5 % (0-7); LYMPHOCYTES % (MANUAL) 5 % (20-46); MONOCYTES % (MANUAL) 1 % (0-11); PLATELET ESTIMATE ADEQUATE (ADEQUATE)
[2023-01-20] VITALS (32 sets, daily range): BP systolic 79–140; PULSE 75–145; RESP 20–39; TEMP 96.7–98; O2SAT 94–100
[2023-01-20] MEDS: guaiFENesin/DEXTROMETHORPHAN 10 ML UDC PO PRN (03:09)
[2023-01-20 05:04] LABS: ABG O2 SAT% ESTIMATE 98.2 % (94.0-100.0); BLOOD GAS HCO3 18.1 mmol/L (21.0-27.0); BLOOD GAS PO2 168.7 mmHg (75.0-100.0)
[2023-01-20 05:10] LABS: BLOOD GAS PCO2 71.4 mmHg (35.0-45.0); BLOOD GAS PH 7.021 (7.350-7.450)
[2023-01-20 05:11] LABS: ALLEN'S TEST YES (P)
[2023-01-20 05:54] LABS: BASOPHILS # (AUTO) 0.2 K/uL (0.0-0.2); BASOPHILS % (AUTO) 0.8 % (0.0-2.0); EOSINOPHILS # (AUTO) 0.6 K/uL (0.0-0.4); EOSINOPHILS % (AUTO) 3.2 % (0.0-4.0); HEMATOCRIT 30.8 % (36-48); HEMOGLOBIN 9.8 g/dL (12.0-16.0); LYMPHOCYTES # (AUTO) 0.9 K/uL (1.0-5.5); LYMPHOCYTES % (AUTO) 4.5 % (20.5-51.5); MEAN CORPUSCULAR HEMOGLOBIN 27 pg (27-31); MEAN CORPUSCULAR HGB CONC 32 % (32-36); MEAN CORPUSCULAR VOLUME 85 fL (79.0-98.0); MONOCYTES # (AUTO) 0.5 K/uL (0.0-1.0); MONOCYTES % (AUTO) 2.3 % (1.7-9.3); NEUTROPHILS # (AUTO) 17.6 K/uL (1.8-7.7); NEUTROPHILS % (AUTO) 89.2 % (40.0-70.0); PLATELET COUNT (AUTO) 205 K/uL (130-430); RED BLOOD CELL COUNT(AUTO) 3.61 MIL/uL (4.2-6.2); RED CELL DISTRIBUTION WIDTH 18.4 % (9.0-15.0); WHITE BLOOD COUNT (AUTO) 19.7 K/uL (4.8-10.8)
[2023-01-20 06:04] LABS: BLOOD GAS PCO2 38.6 mmHg (35.0-45.0); BLOOD GAS PH 7.399 (7.350-7.450)
[2023-01-20 06:05] LABS: ABG O2 SAT% ESTIMATE 97.2 % (94.0-100.0); BLOOD GAS BASE EXCESS -1.2 mmol/L (-3.0-3.0); BLOOD GAS HCO3 23.3 mmol/L (21.0-27.0); BLOOD GAS PO2 94.3 mmHg (75.0-100.0)
[2023-01-20 06:06] LABS: ALLEN'S TEST Y (P)
[2023-01-20 06:11] LABS: INR 1.7 (0.8-1.2); PROTHROMBIN TIME 16.7 SECS (9.5-12.5)
[2023-01-20 06:14] LABS: ANION GAP 13 (5-15); CALCIUM 7.4 mg/dL (8.4-11.0); CARBON DIOXIDE 23 mmol/L (23-29); CHLORIDE 99 mmol/L (98-107); CREATININE 0.84 mg/dL (0.55-1.30); GLUCOSE 264 mg/dL (74-106); POTASSIUM 3.7 mmol/L (3.5-5.1); SODIUM SERUM 135 mmol/L (136-145); UREA NITROGEN, BLOOD 7 mg/dL (8-21)
[2023-01-20] MEDS ORDERED: PROPOFOL DRIP 100 ML IV PRN (06:30)
[2023-01-20] MEDS ORDERED: NACL 0.9% 1,000 ML IV SCH (06:30)
[2023-01-20 06:36] LABS: ERYTHROCYTE SEDIMENTATION RATE 3 MM/HR (0-20)
[2023-01-20] MEDS: FENTANYL CITRATE-0.9 % NACL/PF 100 ML IV PRN (07:05)
[2023-01-20] MEDS: MIDAZOLAM IN NACL,ISO-OSMOT/PF 100 ML IV PRN (07:06)
[2023-01-20] MEDS: APIXABAN 2.5 MG TABLET PO SCH ×2 (09:25→20:34)
[2023-01-20] MEDS: NACL 0.9% 1,000 ML IV SCH ×2 (11:30→20:42)
[2023-01-20] MEDS ORDERED: CALCIUM GLUCONATE 2 GM in NS 100 ML IV ONE (12:00)
[2023-01-20] MEDS: CEFEPIME 2 GM in D5W 100 ML IV SCH ×2 (13:53→20:39)
[2023-01-20] MEDS: FAMOTIDINE PF 20 MG/2 ML VIAL IVP SCH (13:53)
[2023-01-20] MEDS ORDERED: EPINEPHrine JECT 0.1 MG/ML SYR IVP ONE (14:27)
[2023-01-20] MEDS ORDERED: SODIUM BICARBONATE 8.4% JECT 50 MEQ/50 ML SYRINGE IVP ONE (14:27)
[2023-01-20] MEDS ORDERED: ATROPINE SULFATE 1 MG/10 ML SYRINGE IVP ONE (14:27)
[2023-01-20] MEDS: metroNIDAZOLE 500 mg/NS 100 ML IV SCH ×2 (15:03→20:39)
[2023-01-20] MEDS ORDERED: NACL 0.9% 1,000 ML IV ONE (15:30)
[2023-01-20] MEDS: NOREPINEPHRINE BITARTRATE 4 MG in NS 246 ML IV PRN ×2 (18:09→23:28)
[2023-01-21] VITALS (33 sets, daily range): BP systolic 87–147; PULSE 71–97; RESP 10–23; TEMP 97.8–98.8; O2SAT 94–99
[2023-01-21] MEDS: FENTANYL CITRATE-0.9 % NACL/PF 100 ML IV PRN ×2 (00:30→20:13)
[2023-01-21] MEDS: CEFEPIME 2 GM in D5W 100 ML IV SCH ×3 (05:51→21:24)
[2023-01-21] MEDS: metroNIDAZOLE 500 mg/NS 100 ML IV SCH ×3 (05:51→21:27)
[2023-01-21 05:56] LABS: BASOPHILS # (AUTO) 0.3 K/uL (0.0-0.2); BASOPHILS % (AUTO) 1.7 % (0.0-2.0); EOSINOPHILS # (AUTO) 1.7 K/uL (0.0-0.4); EOSINOPHILS % (AUTO) 9.9 % (0.0-4.0); HEMATOCRIT 27.8 % (36-48); HEMOGLOBIN 8.8 g/dL (12.0-16.0); LYMPHOCYTES # (AUTO) 0.7 K/uL (1.0-5.5); LYMPHOCYTES % (AUTO) 3.9 % (20.5-51.5); MEAN CORPUSCULAR HEMOGLOBIN 27 pg (27-31); MEAN CORPUSCULAR HGB CONC 32 % (32-36); MEAN CORPUSCULAR VOLUME 84 fL (79.0-98.0); MONOCYTES # (AUTO) 0.4 K/uL (0.0-1.0); NEUTROPHILS # (AUTO) 14.3 K/uL (1.8-7.7); NEUTROPHILS % (AUTO) 82.5 % (40.0-70.0); PLATELET COUNT (AUTO) 184 K/uL (130-430); RED BLOOD CELL COUNT(AUTO) 3.29 MIL/uL (4.2-6.2); RED CELL DISTRIBUTION WIDTH 19.1 % (9.0-15.0); WHITE BLOOD COUNT (AUTO) 17.3 K/uL (4.8-10.8)
[2023-01-21 06:01] LABS: ANION GAP 8 (5-15); CARBON DIOXIDE 25 mmol/L (23-29); CHLORIDE 106 mmol/L (98-107); CREATININE 0.78 mg/dL (0.55-1.30); GLUCOSE 150 mg/dL (74-106); POTASSIUM 3.1 mmol/L (3.5-5.1); SODIUM SERUM 139 mmol/L (136-145); UREA NITROGEN, BLOOD 13 mg/dL (8-21)
[2023-01-21 06:06] LABS: CALCIUM 6.9 mg/dL (8.4-11.0)
[2023-01-21] MEDS: NACL 0.9% 1,000 ML IV SCH ×2 (06:08→14:48)
[2023-01-21 06:12] LABS: ERYTHROCYTE SEDIMENTATION RATE 11 MM/HR (0-20)
[2023-01-21] MEDS: APIXABAN 2.5 MG TABLET PO SCH ×2 (09:57→21:28)
[2023-01-21] MEDS: FAMOTIDINE PF 20 MG/2 ML VIAL IVP SCH (09:59)
[2023-01-21] MEDS: NOREPINEPHRINE BITARTRATE 4 MG in NS 246 ML IV PRN (10:02)
[2023-01-21] MEDS ORDERED: POTASSIUM CHLORIDE 20 MEQ/PKT PACKET NG ONE (11:15)
[2023-01-21] MEDS ORDERED: CALCIUM GLUC 2 GM/100ML-NACL 100 ML IV ONE (12:00)
[2023-01-21] MEDS: MIDAZOLAM IN NACL,ISO-OSMOT/PF 100 ML IV PRN (20:08)
[2023-01-22] VITALS (36 sets, daily range): BP systolic 94–147; PULSE 63–98; RESP 8–26; TEMP 97.5–98.8; O2SAT 91–99
[2023-01-22] MEDS: NACL 0.9% 1,000 ML IV SCH ×3 (03:30→23:19)
[2023-01-22 05:32] LABS: ERYTHROCYTE SEDIMENTATION RATE 27 MM/HR (0-20)
[2023-01-22] MEDS: metroNIDAZOLE 500 mg/NS 100 ML IV SCH ×3 (05:32→21:35)
[2023-01-22 05:40] LABS: BASOPHILS # (AUTO) 0.1 K/uL (0.0-0.2); BASOPHILS % (AUTO) 0.7 % (0.0-2.0); EOSINOPHILS # (AUTO) 2.3 K/uL (0.0-0.4); EOSINOPHILS % (AUTO) 15.5 % (0.0-4.0); HEMATOCRIT 26.3 % (36-48); HEMOGLOBIN 8.5 g/dL (12.0-16.0); LYMPHOCYTES # (AUTO) 0.5 K/uL (1.0-5.5); LYMPHOCYTES % (AUTO) 3.4 % (20.5-51.5); MEAN CORPUSCULAR HEMOGLOBIN 27 pg (27-31); MEAN CORPUSCULAR HGB CONC 32 % (32-36); MEAN CORPUSCULAR VOLUME 84 fL (79.0-98.0); MONOCYTES # (AUTO) 0.3 K/uL (0.0-1.0); MONOCYTES % (AUTO) 2.3 % (1.7-9.3); NEUTROPHILS # (AUTO) 11.4 K/uL (1.8-7.7); NEUTROPHILS % (AUTO) 78.1 % (40.0-70.0); PLATELET COUNT (AUTO) 148 K/uL (130-430); RED BLOOD CELL COUNT(AUTO) 3.15 MIL/uL (4.2-6.2); WHITE BLOOD COUNT (AUTO) 14.5 K/uL (4.8-10.8)
[2023-01-22 05:56] LABS: ALANINE AMINOTRANSFERASE 7 U/L (12-78); ALBUMIN 1.7 g/dL (3.4-4.8); ANION GAP 10 (5-15); ASPARTATE AMINOTRANSFERASE 9 U/L (10-37); CALCIUM 7.2 mg/dL (8.4-11.0); CARBON DIOXIDE 23 mmol/L (23-29); CHLORIDE 107 mmol/L (98-107); CREATININE 0.58 mg/dL (0.55-1.30); GLUCOSE 134 mg/dL (74-106); PHOSPHORUS 1.5 mg/dL (2.7-4.5); POTASSIUM 3.2 mmol/L (3.5-5.1); SODIUM SERUM 140 mmol/L (136-145); TOTAL BILIRUBIN 0.6 mg/dL (0.0-1.0); TOTAL PROTEIN, SERUM 4.7 g/dL (6.4-8.3); UREA NITROGEN, BLOOD 10 mg/dL (8-21)
[2023-01-22] MEDS: CEFEPIME 2 GM in D5W 100 ML IV SCH ×3 (06:25→21:36)
[2023-01-22] MEDS ORDERED: CALCIUM GLUCONATE 2 GM in NS 100 ML IV ONE (10:30)
[2023-01-22] MEDS ORDERED: K PHOS 30 MM in NS 250 ML IV ONE (11:00)
[2023-01-22] MEDS: APIXABAN 2.5 MG TABLET PO SCH ×2 (11:21→21:35)
[2023-01-22] MEDS: FAMOTIDINE PF 20 MG/2 ML VIAL IVP SCH (11:27)
[2023-01-23] VITALS (33 sets, daily range): BP systolic 109–174; PULSE 71–105; RESP 8–31; TEMP 98.2–98.6; O2SAT 94–98
[2023-01-23] MEDS: CEFEPIME 2 GM in D5W 100 ML IV SCH ×3 (05:32→21:02)
[2023-01-23] MEDS: metroNIDAZOLE 500 mg/NS 100 ML IV SCH ×3 (05:32→21:02)
[2023-01-23 06:42] LABS: BASOPHILS # (AUTO) 0.1 K/uL (0.0-0.2); BASOPHILS % (AUTO) 0.8 % (0.0-2.0); EOSINOPHILS % (AUTO) 15.3 % (0.0-4.0); HEMATOCRIT 26.6 % (36-48); HEMOGLOBIN 8.4 g/dL (12.0-16.0); LYMPHOCYTES # (AUTO) 0.6 K/uL (1.0-5.5); LYMPHOCYTES % (AUTO) 4.9 % (20.5-51.5); MEAN CORPUSCULAR HEMOGLOBIN 27 pg (27-31); MEAN CORPUSCULAR HGB CONC 32 % (32-36); MEAN CORPUSCULAR VOLUME 85 fL (79.0-98.0); MONOCYTES # (AUTO) 0.3 K/uL (0.0-1.0); MONOCYTES % (AUTO) 2.6 % (1.7-9.3); NEUTROPHILS # (AUTO) 9.8 K/uL (1.8-7.7); NEUTROPHILS % (AUTO) 76.4 % (40.0-70.0); PLATELET COUNT (AUTO) 138 K/uL (130-430); RED BLOOD CELL COUNT(AUTO) 3.12 MIL/uL (4.2-6.2); RED CELL DISTRIBUTION WIDTH 19.8 % (9.0-15.0); WHITE BLOOD COUNT (AUTO) 12.9 K/uL (4.8-10.8)
[2023-01-23 06:54] LABS: ANION GAP 9 (5-15); CALCIUM 7.3 mg/dL (8.4-11.0); CARBON DIOXIDE 23 mmol/L (23-29); CHLORIDE 106 mmol/L (98-107); CREATININE 0.57 mg/dL (0.55-1.30); GLUCOSE 135 mg/dL (74-106); POTASSIUM 3.3 mmol/L (3.5-5.1); SODIUM SERUM 138 mmol/L (136-145); UREA NITROGEN, BLOOD 10 mg/dL (8-21)
[2023-01-23 07:57] LABS: ERYTHROCYTE SEDIMENTATION RATE 69 MM/HR (0-20)
[2023-01-23] MEDS: APIXABAN 2.5 MG TABLET PO SCH ×2 (09:26→21:02)
[2023-01-23] MEDS: NACL 0.9% 1,000 ML IV SCH ×2 (09:27→19:57)
[2023-01-23] MEDS: FAMOTIDINE PF 20 MG/2 ML VIAL IVP SCH (09:27)
[2023-01-23] MEDS ORDERED: POTASSIUM CHLORIDE 20 MEQ/PKT PACKET NG ONE (10:15)
[2023-01-23] MEDS ORDERED: CALCIUM GLUCONATE 2 GM in NS 100 ML IV ONE (12:00)
[2023-01-23] MEDS: FENTANYL CITRATE-0.9 % NACL/PF 100 ML IV PRN (12:32)
[2023-01-24] VITALS (34 sets, daily range): BP systolic 81–163; PULSE 58–112; RESP 7–32; TEMP 96.5–98.5; O2SAT 92–98
[2023-01-24] MEDS: NACL 0.9% 1,000 ML IV SCH ×2 (05:28→14:31)
[2023-01-24] MEDS: metroNIDAZOLE 500 mg/NS 100 ML IV SCH ×3 (05:28→21:24)
[2023-01-24] MEDS: CEFEPIME 2 GM in D5W 100 ML IV SCH ×3 (05:28→21:24)
[2023-01-24 05:56] LABS: ERYTHROCYTE SEDIMENTATION RATE 30 MM/HR (0-20)
[2023-01-24 06:11] LABS: BASOPHILS # (AUTO) 0.1 K/uL (0.0-0.2); BASOPHILS % (AUTO) 0.9 % (0.0-2.0); EOSINOPHILS # (AUTO) 1.2 K/uL (0.0-0.4); EOSINOPHILS % (AUTO) 13.1 % (0.0-4.0); HEMATOCRIT 25.2 % (36-48); HEMOGLOBIN 8.1 g/dL (12.0-16.0); LYMPHOCYTES # (AUTO) 0.7 K/uL (1.0-5.5); LYMPHOCYTES % (AUTO) 7.4 % (20.5-51.5); MEAN CORPUSCULAR HEMOGLOBIN 27 pg (27-31); MEAN CORPUSCULAR HGB CONC 32 % (32-36); MEAN CORPUSCULAR VOLUME 85 fL (79.0-98.0); MONOCYTES # (AUTO) 0.4 K/uL (0.0-1.0); MONOCYTES % (AUTO) 3.8 % (1.7-9.3); NEUTROPHILS # (AUTO) 6.9 K/uL (1.8-7.7); NEUTROPHILS % (AUTO) 74.8 % (40.0-70.0); PLATELET COUNT (AUTO) 146 K/uL (130-430); RED BLOOD CELL COUNT(AUTO) 2.98 MIL/uL (4.2-6.2); RED CELL DISTRIBUTION WIDTH 19.3 % (9.0-15.0); WHITE BLOOD COUNT (AUTO) 9.3 K/uL (4.8-10.8)
[2023-01-24 06:32] LABS: ALANINE AMINOTRANSFERASE 8 U/L (12-78); ALBUMIN 1.5 g/dL (3.4-4.8); ANION GAP 9 (5-15); ASPARTATE AMINOTRANSFERASE 7 U/L (10-37); CALCIUM 7.6 mg/dL (8.4-11.0); CARBON DIOXIDE 24 mmol/L (23-29); CHLORIDE 109 mmol/L (98-107); CREATININE 0.54 mg/dL (0.55-1.30); GLUCOSE 146 mg/dL (74-106); PHOSPHORUS 1.8 mg/dL (2.7-4.5); POTASSIUM 3.4 mmol/L (3.5-5.1); SODIUM SERUM 142 mmol/L (136-145); TOTAL BILIRUBIN 0.4 mg/dL (0.0-1.0); TOTAL PROTEIN, SERUM 4.7 g/dL (6.4-8.3); UREA NITROGEN, BLOOD 9 mg/dL (8-21)
[2023-01-24] MEDS ORDERED: MAGNESIUM SULFATE 50 ML IV ONE ×2 (08:39→09:00)
[2023-01-24] MEDS: APIXABAN 2.5 MG TABLET PO SCH (08:43)
[2023-01-24] MEDS: NA PHOS 30 MM in NS 250 ML IV ONE ×2 (10:19→10:27)
[2023-01-24] MEDS ORDERED: K PHOS 30 MM in NS 250 ML IV ONE (11:00)
[2023-01-24] MEDS: FAMOTIDINE PF 20 MG/2 ML VIAL IVP SCH (12:22)
[2023-01-25] VITALS (36 sets, daily range): BP systolic 94–140; PULSE 62–113; RESP 16–39; TEMP 96.6–99.7; O2SAT 92–99
[2023-01-25] MEDS: NACL 0.9% 1,000 ML IV SCH ×2 (04:43→15:24)
[2023-01-25] MEDS: metroNIDAZOLE 500 mg/NS 100 ML IV SCH ×3 (05:07→22:29)
[2023-01-25] MEDS: CEFEPIME 2 GM in D5W 100 ML IV SCH ×3 (05:08→22:29)
[2023-01-25 05:29] LABS: ERYTHROCYTE SEDIMENTATION RATE 31 MM/HR (0-20)
[2023-01-25 05:43] LABS: BASOPHILS # (AUTO) 0.1 K/uL (0.0-0.2); BASOPHILS % (AUTO) 0.9 % (0.0-2.0); EOSINOPHILS % (AUTO) 9.5 % (0.0-4.0); HEMATOCRIT 24.3 % (36-48); HEMOGLOBIN 7.8 g/dL (12.0-16.0); LYMPHOCYTES # (AUTO) 0.6 K/uL (1.0-5.5); LYMPHOCYTES % (AUTO) 5.2 % (20.5-51.5); MEAN CORPUSCULAR HEMOGLOBIN 27 pg (27-31); MEAN CORPUSCULAR HGB CONC 32 % (32-36); MEAN CORPUSCULAR VOLUME 84 fL (79.0-98.0); MONOCYTES # (AUTO) 0.4 K/uL (0.0-1.0); MONOCYTES % (AUTO) 3.9 % (1.7-9.3); NEUTROPHILS # (AUTO) 8.9 K/uL (1.8-7.7); NEUTROPHILS % (AUTO) 80.5 % (40.0-70.0); PLATELET COUNT (AUTO) 180 K/uL (130-430); RED CELL DISTRIBUTION WIDTH 19.3 % (9.0-15.0); WHITE BLOOD COUNT (AUTO) 11.1 K/uL (4.8-10.8)
[2023-01-25 05:52] LABS: ANION GAP 10 (5-15); CALCIUM 7.4 mg/dL (8.4-11.0); CARBON DIOXIDE 24 mmol/L (23-29); CHLORIDE 109 mmol/L (98-107); CREATININE 0.52 mg/dL (0.55-1.30); GLUCOSE 146 mg/dL (74-106); POTASSIUM 3.1 mmol/L (3.5-5.1); SODIUM SERUM 143 mmol/L (136-145); UREA NITROGEN, BLOOD 9 mg/dL (8-21)
[2023-01-25] MEDS ORDERED: APIXABAN 2.5 MG TABLET PO ONE (09:00)
[2023-01-25] MEDS ORDERED: CALCIUM GLUCONATE 2 GM in NS 100 ML IV ONE (11:00)
[2023-01-25] MEDS ORDERED: KCL 40 mEq in 100 mL (PREMIX) 100 ML IV ONE (12:00)
[2023-01-25] MEDS: FAMOTIDINE PF 20 MG/2 ML VIAL IVP SCH (15:28)
[2023-01-25] MEDS: NOREPINEPHRINE BITARTRATE 4 MG in NS 246 ML IV PRN (20:35)
[2023-01-25] MEDS: APIXABAN 2.5 MG TABLET PO SCH (22:30)
[2023-01-26] VITALS (37 sets, daily range): BP systolic 96–142; PULSE 43–100; RESP 22–39; TEMP 96.1–99.6; O2SAT 93–99
[2023-01-26 05:13] LABS: ERYTHROCYTE SEDIMENTATION RATE 36 MM/HR (0-20)
[2023-01-26 05:19] LABS: BASOPHILS # (AUTO) 0.1 K/uL (0.0-0.2); BASOPHILS % (AUTO) 1.1 % (0.0-2.0); EOSINOPHILS % (AUTO) 11.6 % (0.0-4.0); HEMATOCRIT 23.8 % (36-48); HEMOGLOBIN 7.6 g/dL (12.0-16.0); LYMPHOCYTES # (AUTO) 0.6 K/uL (1.0-5.5); LYMPHOCYTES % (AUTO) 7.5 % (20.5-51.5); MEAN CORPUSCULAR HEMOGLOBIN 27 pg (27-31); MEAN CORPUSCULAR HGB CONC 32 % (32-36); MEAN CORPUSCULAR VOLUME 85 fL (79.0-98.0); MONOCYTES # (AUTO) 0.3 K/uL (0.0-1.0); NEUTROPHILS # (AUTO) 6.6 K/uL (1.8-7.7); NEUTROPHILS % (AUTO) 76.8 % (40.0-70.0); PLATELET COUNT (AUTO) 203 K/uL (130-430); RED BLOOD CELL COUNT(AUTO) 2.82 MIL/uL (4.2-6.2); RED CELL DISTRIBUTION WIDTH 19.9 % (9.0-15.0); WHITE BLOOD COUNT (AUTO) 8.6 K/uL (4.8-10.8)
[2023-01-26] MEDS: CEFEPIME 2 GM in D5W 100 ML IV SCH ×3 (06:08→21:34)
[2023-01-26] MEDS: metroNIDAZOLE 500 mg/NS 100 ML IV SCH ×3 (06:08→22:00)
[2023-01-26] MEDS: NACL 0.9% 1,000 ML IV SCH ×3 (06:14→20:42)
[2023-01-26 06:19] LABS: ALANINE AMINOTRANSFERASE 7 U/L (12-78); ALBUMIN 1.5 g/dL (3.4-4.8); ANION GAP 7 (5-15); ASPARTATE AMINOTRANSFERASE 10 U/L (10-37); CALCIUM 7.5 mg/dL (8.4-11.0); CARBON DIOXIDE 23 mmol/L (23-29); CHLORIDE 111 mmol/L (98-107); CREATININE 0.53 mg/dL (0.55-1.30); GLUCOSE 166 mg/dL (74-106); PHOSPHORUS 1.6 mg/dL (2.7-4.5); POTASSIUM 3.4 mmol/L (3.5-5.1); SODIUM SERUM 141 mmol/L (136-145); TOTAL BILIRUBIN 0.3 mg/dL (0.0-1.0); TOTAL PROTEIN, SERUM 4.7 g/dL (6.4-8.3); UREA NITROGEN, BLOOD 11 mg/dL (8-21)
[2023-01-26] MEDS: APIXABAN 2.5 MG TABLET PO SCH ×2 (10:01→20:31)
[2023-01-26] MEDS: FAMOTIDINE PF 20 MG/2 ML VIAL IVP SCH (11:09)
[2023-01-27] VITALS (33 sets, daily range): BP systolic 96–160; PULSE 55–125; RESP 20–44; TEMP 96.5–99; O2SAT 91–99
[2023-01-27] MEDS: NACL 0.9% 1,000 ML IV SCH (05:00)
[2023-01-27] MEDS: CEFEPIME 2 GM in D5W 100 ML IV SCH ×3 (05:44→21:34)
[2023-01-27] MEDS: metroNIDAZOLE 500 mg/NS 100 ML IV SCH ×3 (05:45→21:34)
[2023-01-27 06:52] LABS: BASOPHILS # (AUTO) 0.1 K/uL (0.0-0.2); BASOPHILS % (AUTO) 1.5 % (0.0-2.0); EOSINOPHILS % (AUTO) 10.4 % (0.0-4.0); HEMATOCRIT 23.4 % (36-48); HEMOGLOBIN 7.6 g/dL (12.0-16.0); LYMPHOCYTES # (AUTO) 0.7 K/uL (1.0-5.5); LYMPHOCYTES % (AUTO) 7.3 % (20.5-51.5); MEAN CORPUSCULAR HEMOGLOBIN 28 pg (27-31); MEAN CORPUSCULAR HGB CONC 33 % (32-36); MEAN CORPUSCULAR VOLUME 84 fL (79.0-98.0); MONOCYTES # (AUTO) 0.3 K/uL (0.0-1.0); MONOCYTES % (AUTO) 3.5 % (1.7-9.3); NEUTROPHILS # (AUTO) 7.7 K/uL (1.8-7.7); NEUTROPHILS % (AUTO) 77.3 % (40.0-70.0); PLATELET COUNT (AUTO) 261 K/uL (130-430); RED BLOOD CELL COUNT(AUTO) 2.78 MIL/uL (4.2-6.2); RETICULOCYTE COUNT 3.7 % (0.5-1.5); WHITE BLOOD COUNT (AUTO) 9.9 K/uL (4.8-10.8)
[2023-01-27 06:53] LABS: ANION GAP 8 (5-15); CALCIUM 7.5 mg/dL (8.4-11.0); CARBON DIOXIDE 24 mmol/L (23-29); CHLORIDE 108 mmol/L (98-107); CREATININE 0.51 mg/dL (0.55-1.30); GLUCOSE 195 mg/dL (74-106); SODIUM SERUM 140 mmol/L (136-145); UREA NITROGEN, BLOOD 12 mg/dL (8-21)
[2023-01-27 07:03] LABS: POTASSIUM 2.8 mmol/L (3.5-5.1)
[2023-01-27 07:12] LABS: TOTAL IRON BIND. CAPACITY 87 ug/dL (250-450)
[2023-01-27 07:15] LABS: ERYTHROCYTE SEDIMENTATION RATE 46 MM/HR (0-20)
[2023-01-27] MEDS: APIXABAN 2.5 MG TABLET PO SCH ×2 (09:35→21:35)
[2023-01-27] MEDS ORDERED: KCL 40 mEq in 100 mL (PREMIX) 100 ML IV ONE ×2 (11:45→16:00)
[2023-01-27] MEDS ORDERED: COMMUNICATION ORDER XX ONE (11:45)
[2023-01-27] MEDS: FAMOTIDINE PF 20 MG/2 ML VIAL IVP SCH (12:36)
[2023-01-27] MEDS ORDERED: POTASSIUM CHLORIDE 40 MEQ in D5W 250 ML IV SCH (13:00)
[2023-01-27] MEDS ORDERED: NALOXONE HCL 0.4 MG/ML AMP (NARCAN) IVP PRN (14:30)
[2023-01-27] MEDS: MORPHINE 2 MG/ML INJ. SYRINGE IVP PRN ×2 (16:00→18:33)
[2023-01-27] MEDS: ALBUTEROL SULFATE 0.083% 2.5 MG/3 ML VIAL.NEB INH PRN (23:10)
[2023-01-27] MEDS: LORazepam 2 MG/ML VIAL IVP PRN (23:41)
[2023-01-28] VITALS (33 sets, daily range): BP systolic 82–160; PULSE 57–109; RESP 29–42; TEMP 96.8–102.2; O2SAT 86–100
[2023-01-28] MEDS: NACL 0.9% 1,000 ML IV SCH ×3 (00:07→19:30)
[2023-01-28] MEDS: ACETAMINOPHEN 500 MG TABLET PO PRN ×3 (02:58→16:51)
[2023-01-28] MEDS ORDERED: ACETAMINOPHEN 500 MG TABLET PO PRN (05:15)
[2023-01-28 06:05] LABS: BASOPHILS # (AUTO) 0.1 K/uL (0.0-0.2); BASOPHILS % (AUTO) 1.2 % (0.0-2.0); EOSINOPHILS # (AUTO) 0.5 K/uL (0.0-0.4); EOSINOPHILS % (AUTO) 5.6 % (0.0-4.0); LYMPHOCYTES # (AUTO) 0.5 K/uL (1.0-5.5); LYMPHOCYTES % (AUTO) 5.1 % (20.5-51.5); MEAN CORPUSCULAR HEMOGLOBIN 27 pg (27-31); MEAN CORPUSCULAR HGB CONC 31 % (32-36); MEAN CORPUSCULAR VOLUME 84 fL (79.0-98.0); MONOCYTES # (AUTO) 0.3 K/uL (0.0-1.0); NEUTROPHILS % (AUTO) 85.1 % (40.0-70.0); PLATELET COUNT (AUTO) 215 K/uL (130-430); RED BLOOD CELL COUNT(AUTO) 2.59 MIL/uL (4.2-6.2); RED CELL DISTRIBUTION WIDTH 19.7 % (9.0-15.0); WHITE BLOOD COUNT (AUTO) 9.4 K/uL (4.8-10.8)
[2023-01-28] MEDS: metroNIDAZOLE 500 mg/NS 100 ML IV SCH ×3 (06:11→21:43)
[2023-01-28] MEDS: CEFEPIME 2 GM in D5W 100 ML IV SCH ×3 (06:11→21:44)
[2023-01-28 07:13] LABS: ALANINE AMINOTRANSFERASE 9 U/L (12-78); ALBUMIN 1.5 g/dL (3.4-4.8); ANION GAP 8 (5-15); ASPARTATE AMINOTRANSFERASE 11 U/L (10-37); CALCIUM 7.4 mg/dL (8.4-11.0); CARBON DIOXIDE 24 mmol/L (23-29); CHLORIDE 111 mmol/L (98-107); CREATININE 0.55 mg/dL (0.55-1.30); GLUCOSE 168 mg/dL (74-106); POTASSIUM 3.6 mmol/L (3.5-5.1); SODIUM SERUM 143 mmol/L (136-145); TOTAL BILIRUBIN 0.3 mg/dL (0.0-1.0); TOTAL PROTEIN, SERUM 5.1 g/dL (6.4-8.3); UREA NITROGEN, BLOOD 20 mg/dL (8-21)
[2023-01-28] MEDS: ALBUTEROL SULFATE 0.083% 2.5 MG/3 ML VIAL.NEB INH PRN ×2 (08:18→13:33)
[2023-01-28] MEDS: LORazepam 2 MG/ML VIAL IVP PRN ×4 (08:26→23:48)
[2023-01-28 08:34] LABS: HEMATOCRIT 21.8 % (36-48); HEMOGLOBIN 6.9 g/dL (12.0-16.0)
[2023-01-28] MEDS: APIXABAN 2.5 MG TABLET PO SCH ×2 (08:39→20:21)
[2023-01-28 09:27] LABS: CLARITY/URINE SLIGHTLY CLOUDY (CLEAR); COLOR,URINE YELLOW (YELLOW); GLUCOSE,URINE NEGATIVE (NEGATIVE); KETONES,URINE TRACE (NEGATIVE); PROTEIN URINE 3+ (NEGATIVE)
[2023-01-28 09:28] LABS: BILIRUBIN,URINE NEGATIVE (NEGATIVE); BLOOD, URINE 3+ (NEGATIVE); LEUKOCYTE ESTERASE ,URINE NEGATIVE (NEGATIVE); NITRITE, URINE NEGATIVE (NEGATIVE); UROBILINOGEN,URINE 0.2 (0.2-1.0)
[2023-01-28 09:58] LABS: WBC,URINE 0-3 /HPF (0-3)
[2023-01-28 09:59] LABS: BACTERIA,URINE FEW /HPF (None Seen); MUCUS,URINE 1+ /LPF (None Seen)
[2023-01-28] MEDS: FAMOTIDINE PF 20 MG/2 ML VIAL IVP SCH (11:12)
[2023-01-28] MEDS ORDERED: MICAFUNGIN SODIUM 100 MG in NS 100 ML IV SCH (21:00)
[2023-01-28] MEDS: MORPHINE 2 MG/ML INJ. SYRINGE IVP PRN (22:35)
[2023-01-29] VITALS (36 sets, daily range): BP systolic 81–157; PULSE 65–133; RESP 18–45; TEMP 97.2–99.6; O2SAT 90–99
[2023-01-29] MEDS: ALBUTEROL SULFATE 0.083% 2.5 MG/3 ML VIAL.NEB INH PRN ×3 (01:53→14:13)
[2023-01-29] MEDS ORDERED: DEXMEDETOMIDINE HCL 200 MCG/2 ML VIAL IV ONE (02:51)
[2023-01-29] MEDS: NACL 0.9% 1,000 ML IV SCH ×2 (05:30→15:30)
[2023-01-29] MEDS: metroNIDAZOLE 500 mg/NS 100 ML IV SCH (05:51)
[2023-01-29] MEDS: CEFEPIME 2 GM in D5W 100 ML IV SCH (05:52)
[2023-01-29 07:06] LABS: FOLATE (FOLIC ACID) 5.3 ng/mL (>3.0)
[2023-01-29 07:35] LABS: BASOPHILS # (AUTO) 0.1 K/uL (0.0-0.2); BASOPHILS % (AUTO) 0.6 % (0.0-2.0); EOSINOPHILS # (AUTO) 1.6 K/uL (0.0-0.4); EOSINOPHILS % (AUTO) 10.4 % (0.0-4.0); HEMATOCRIT 27.1 % (36-48); HEMOGLOBIN 8.5 g/dL (12.0-16.0); LYMPHOCYTES # (AUTO) 0.8 K/uL (1.0-5.5); LYMPHOCYTES % (AUTO) 5.2 % (20.5-51.5); MEAN CORPUSCULAR HEMOGLOBIN 27 pg (27-31); MEAN CORPUSCULAR HGB CONC 31 % (32-36); MEAN CORPUSCULAR VOLUME 85 fL (79.0-98.0); MONOCYTES # (AUTO) 0.4 K/uL (0.0-1.0); MONOCYTES % (AUTO) 2.5 % (1.7-9.3); NEUTROPHILS # (AUTO) 12.2 K/uL (1.8-7.7); NEUTROPHILS % (AUTO) 81.3 % (40.0-70.0); PLATELET COUNT (AUTO) 259 K/uL (130-430); RED BLOOD CELL COUNT(AUTO) 3.18 MIL/uL (4.2-6.2)
[2023-01-29 08:23] LABS: ANION GAP 9 (5-15); CALCIUM 7.4 mg/dL (8.4-11.0); CARBON DIOXIDE 22 mmol/L (23-29); CHLORIDE 112 mmol/L (98-107); CREATININE 0.58 mg/dL (0.55-1.30); GLUCOSE 177 mg/dL (74-106); POTASSIUM 3.7 mmol/L (3.5-5.1); SODIUM SERUM 143 mmol/L (136-145); UREA NITROGEN, BLOOD 20 mg/dL (8-21)
[2023-01-29] MEDS: APIXABAN 2.5 MG TABLET PO SCH ×2 (08:47→20:05)
[2023-01-29] MEDS: MICAFUNGIN SODIUM 100 MG in NS 100 ML IV SCH (08:48)
[2023-01-29] MEDS: FAMOTIDINE PF 20 MG/2 ML VIAL IVP SCH (08:49)
[2023-01-29] MEDS ORDERED: CALCIUM GLUCONATE 2 GM in NS 80 ML IV ONE (10:00)
[2023-01-29 12:57] LABS: ABG O2 SAT% ESTIMATE 95.1 % (94.0-100.0); BLOOD GAS BASE EXCESS -1.9 mmol/L (-3.0-3.0); BLOOD GAS HCO3 21.3 mmol/L (21.0-27.0); BLOOD GAS PCO2 32.5 mmHg (35.0-45.0); BLOOD GAS PH 7.435 (7.350-7.450); BLOOD GAS PO2 71.6 mmHg (75.0-100.0)
[2023-01-29 13:02] LABS: ALLEN'S TEST POSITIVE (P)
[2023-01-29] MEDS: PIPERACILLIN/TAZO 4.5GM/DEX-IS 100 ML IV SCH ×2 (14:10→21:56)
[2023-01-29] MEDS: LORazepam 2 MG/ML VIAL IVP PRN ×2 (16:55→22:50)
[2023-01-29] MEDS: MORPHINE 2 MG/ML INJ. SYRINGE IVP PRN (16:56)
[2023-01-30] VITALS (34 sets, daily range): BP systolic 81–111; PULSE 86–123; RESP 31–41; TEMP 98.4–99.4; O2SAT 91–99
[2023-01-30] MEDS: PROPOFOL DRIP 100 ML IV PRN ×2 (00:46→15:17)
[2023-01-30] MEDS: NACL 0.9% 1,000 ML IV SCH ×3 (02:21→20:41)
[2023-01-30] MEDS ORDERED: NOREPINEPHRINE 4 MG/4 ML VIAL IV ONE (04:27)
[2023-01-30] MEDS: NOREPINEPHRINE BITARTRATE 4 MG in NS 246 ML IV PRN ×2 (04:33→12:55)
[2023-01-30] MEDS: PIPERACILLIN/TAZO 4.5GM/DEX-IS 100 ML IV SCH ×3 (05:22→21:40)
[2023-01-30 06:09] LABS: ERYTHROCYTE SEDIMENTATION RATE 35 MM/HR (0-20)
[2023-01-30 06:10] LABS: BASOPHILS # (AUTO) 0.2 K/uL (0.0-0.2); BASOPHILS % (AUTO) 0.6 % (0.0-2.0); EOSINOPHILS # (AUTO) 1.3 K/uL (0.0-0.4); EOSINOPHILS % (AUTO) 5.3 % (0.0-4.0); HEMATOCRIT 25.9 % (36-48); HEMOGLOBIN 8.1 g/dL (12.0-16.0); LYMPHOCYTES # (AUTO) 0.2 K/uL (1.0-5.5); MEAN CORPUSCULAR HEMOGLOBIN 27 pg (27-31); MEAN CORPUSCULAR HGB CONC 31 % (32-36); MEAN CORPUSCULAR VOLUME 85 fL (79.0-98.0); MONOCYTES # (AUTO) 0.3 K/uL (0.0-1.0); MONOCYTES % (AUTO) 1.1 % (1.7-9.3); NEUTROPHILS # (AUTO) 23.3 K/uL (1.8-7.7); PLATELET COUNT (AUTO) 305 K/uL (130-430); RED BLOOD CELL COUNT(AUTO) 3.06 MIL/uL (4.2-6.2); RED CELL DISTRIBUTION WIDTH 18.6 % (9.0-15.0); WHITE BLOOD COUNT (AUTO) 25.3 K/uL (4.8-10.8)
[2023-01-30 06:20] LABS: ANION GAP 9 (5-15); CALCIUM 7.4 mg/dL (8.4-11.0); CARBON DIOXIDE 22 mmol/L (23-29); CHLORIDE 112 mmol/L (98-107); CREATININE 0.96 mg/dL (0.55-1.30); GLUCOSE 209 mg/dL (74-106); POTASSIUM 3.6 mmol/L (3.5-5.1); SODIUM SERUM 143 mmol/L (136-145); UREA NITROGEN, BLOOD 28 mg/dL (8-21)
[2023-01-30] MEDS ORDERED: FAMOTIDINE PF 20 MG/2 ML VIAL IVP ONE (09:30)
[2023-01-30] MEDS: MICAFUNGIN SODIUM 100 MG in NS 100 ML IV SCH (09:45)
[2023-01-30] MEDS: APIXABAN 2.5 MG TABLET PO SCH ×2 (09:49→20:36)
[2023-01-31] VITALS (30 sets, daily range): BP systolic 55–130; PULSE 78–114; RESP 27–37; TEMP 96.7–98.6; O2SAT 93–98
[2023-01-31] MEDS: NOREPINEPHRINE BITARTRATE 4 MG in NS 246 ML IV PRN ×3 (02:47→15:27)
[2023-01-31] MEDS: PROPOFOL DRIP 100 ML IV PRN ×3 (02:48→18:27)
[2023-01-31] MEDS: PIPERACILLIN/TAZO 4.5GM/DEX-IS 100 ML IV SCH ×3 (05:34→23:10)
[2023-01-31 06:07] LABS: BASOPHILS # (AUTO) 0.1 K/uL (0.0-0.2); BASOPHILS % (AUTO) 0.3 % (0.0-2.0); EOSINOPHILS # (AUTO) 3.7 K/uL (0.0-0.4); EOSINOPHILS % (AUTO) 10.9 % (0.0-4.0); HEMOGLOBIN 8.2 g/dL (12.0-16.0); LYMPHOCYTES # (AUTO) 0.3 K/uL (1.0-5.5); LYMPHOCYTES % (AUTO) 0.9 % (20.5-51.5); MEAN CORPUSCULAR HEMOGLOBIN 27 pg (27-31); MEAN CORPUSCULAR HGB CONC 32 % (32-36); MEAN CORPUSCULAR VOLUME 85 fL (79.0-98.0); MONOCYTES # (AUTO) 0.4 K/uL (0.0-1.0); NEUTROPHILS # (AUTO) 29.7 K/uL (1.8-7.7); NEUTROPHILS % (AUTO) 86.9 % (40.0-70.0); PLATELET COUNT (AUTO) 271 K/uL (130-430); RED BLOOD CELL COUNT(AUTO) 3.07 MIL/uL (4.2-6.2); RED CELL DISTRIBUTION WIDTH 18.8 % (9.0-15.0)
[2023-01-31 06:16] LABS: WHITE BLOOD COUNT (AUTO) 34.2 K/uL (4.8-10.8)
[2023-01-31 06:20] LABS: ALANINE AMINOTRANSFERASE 8 U/L (12-78); ALBUMIN 1.2 g/dL (3.4-4.8); ANION GAP 12 (5-15); ASPARTATE AMINOTRANSFERASE 15 U/L (10-37); CARBON DIOXIDE 20 mmol/L (23-29); CHLORIDE 110 mmol/L (98-107); CREATININE 1.83 mg/dL (0.55-1.30); GLUCOSE 186 mg/dL (74-106); POTASSIUM 3.7 mmol/L (3.5-5.1); SODIUM SERUM 142 mmol/L (136-145); TOTAL BILIRUBIN 0.3 mg/dL (0.0-1.0); TOTAL PROTEIN, SERUM 4.6 g/dL (6.4-8.3); UREA NITROGEN, BLOOD 48 mg/dL (8-21)
[2023-01-31 06:22] LABS: ERYTHROCYTE SEDIMENTATION RATE 33 MM/HR (0-20)
[2023-01-31 06:33] LABS: CALCIUM 6.7 mg/dL (8.4-11.0)
[2023-01-31] MEDS: NACL 0.9% 1,000 ML IV SCH (07:30)
[2023-01-31 08:07] LABS: IMMUNOGLOBULIN G, SERUM 534 mg/dL (586-1602); IMMUNOGLOBULIN M, SERUM 21 mg/dL (26-217)
[2023-01-31] MEDS: APIXABAN 2.5 MG TABLET PO SCH ×2 (08:10→23:08)
[2023-01-31] MEDS: MICAFUNGIN SODIUM 100 MG in NS 100 ML IV SCH (08:11)
[2023-01-31] MEDS: FAMOTIDINE PF 20 MG/2 ML VIAL IVP SCH (08:11)
[2023-01-31] MEDS ORDERED: CALCIUM GLUCONATE 2 GM in NS 100 ML IV ONE (11:00)
[2023-01-31] MEDS: DIPHENHYDRAMINE HCL 12.5 MG/5 ML UDC PO SCH ×3 (11:49→23:13)
[2023-01-31] MEDS ORDERED: fentaNYL CITRATE/PF 100 MCG/2 ML AMP IVP ONE (12:00)
[2023-01-31] MEDS ORDERED: MIDAZOLAM HCL 2 MG/2 ML VIAL (VERSED) IVP ONE (12:00)
[2023-01-31] MEDS: VANCOMYCIN HCL 1,250 MG in NS 250 ML IV SCH (13:48)
[2023-01-31] MEDS ORDERED: BUMEX 1 MG/4 ML VIAL IVP ONE (15:15)
[2023-01-31] MEDS: FUROSEMIDE 100 MG in D5W 90 ML IV SCH (15:30)
[2023-01-31] MEDS ORDERED: IMMUNE GLOBULIN (IVIG) - GAMUNEX-C 10% 100 mL BOTTLE IV ONE (17:00)
[2023-01-31] MEDS ORDERED: MENTHOL/ZINC OXIDE 113 GM OINT. TP PRN (17:45)
[2023-02-01] VITALS (36 sets, daily range): BP systolic 91–132; PULSE 70–97; RESP 23–32; TEMP 97.1–98.4; O2SAT 92–99
[2023-02-01] MEDS: PROPOFOL DRIP 100 ML IV PRN ×3 (00:49→23:25)
[2023-02-01 05:13] LABS: BASOPHILS # (AUTO) 0.6 K/uL (0.0-0.2); BASOPHILS % (AUTO) 1.5 % (0.0-2.0); EOSINOPHILS # (AUTO) 5.4 K/uL (0.0-0.4); EOSINOPHILS % (AUTO) 13.3 % (0.0-4.0); HEMATOCRIT 28.1 % (36-48); HEMOGLOBIN 8.7 g/dL (12.0-16.0); LYMPHOCYTES # (AUTO) 0.4 K/uL (1.0-5.5); MEAN CORPUSCULAR HEMOGLOBIN 26 pg (27-31); MEAN CORPUSCULAR HGB CONC 31 % (32-36); MEAN CORPUSCULAR VOLUME 84 fL (79.0-98.0); MONOCYTES # (AUTO) 0.3 K/uL (0.0-1.0); MONOCYTES % (AUTO) 0.7 % (1.7-9.3); NEUTROPHILS # (AUTO) 33.9 K/uL (1.8-7.7); NEUTROPHILS % (AUTO) 83.5 % (40.0-70.0); PLATELET COUNT (AUTO) 290 K/uL (130-430); RED BLOOD CELL COUNT(AUTO) 3.34 MIL/uL (4.2-6.2); RED CELL DISTRIBUTION WIDTH 19.3 % (9.0-15.0)
[2023-02-01 05:25] LABS: WHITE BLOOD COUNT (AUTO) 40.6 K/uL (4.8-10.8)
[2023-02-01 05:28] LABS: ANION GAP 15 (5-15); CALCIUM 7.1 mg/dL (8.4-11.0); CARBON DIOXIDE 18 mmol/L (23-29); CHLORIDE 108 mmol/L (98-107); CREATININE 2.55 mg/dL (0.55-1.30); GLUCOSE 197 mg/dL (74-106); POTASSIUM 4.1 mmol/L (3.5-5.1); SODIUM SERUM 141 mmol/L (136-145); UREA NITROGEN, BLOOD 58 mg/dL (8-21); VANCOMYCIN,RANDOM 14.8 ug/mL (20.0-30.0)
[2023-02-01] MEDS: DIPHENHYDRAMINE HCL 12.5 MG/5 ML UDC PO SCH ×4 (05:31→23:08)
[2023-02-01] MEDS: PIPERACILLIN/TAZO 4.5GM/DEX-IS 100 ML IV SCH ×3 (05:31→23:05)
[2023-02-01] MEDS: ALBUTEROL SULFATE 0.083% 2.5 MG/3 ML VIAL.NEB INH PRN (07:24)
[2023-02-01] MEDS: NOREPINEPHRINE BITARTRATE 16 MG in NS 234 ML IV PRN ×2 (07:53→23:26)
[2023-02-01] MEDS: APIXABAN 2.5 MG TABLET PO SCH ×2 (08:28→21:00)
[2023-02-01] MEDS: MICAFUNGIN SODIUM 100 MG in NS 100 ML IV SCH (08:29)
[2023-02-01] MEDS: FAMOTIDINE PF 20 MG/2 ML VIAL IVP SCH (08:29)
[2023-02-01] MEDS ORDERED: CALCIUM GLUCONATE 2 GM in NS 100 ML IV ONE (11:00)
[2023-02-01] MEDS ORDERED: METHYLPREDNISOLONE SOD SUCC 40 MG/ML VIAL IVP ONE (11:30)
[2023-02-01] MEDS: FUROSEMIDE 100 MG in D5W 90 ML IV SCH (12:21)
[2023-02-01] MEDS ORDERED: HEPARIN SODIUM,PORCINE 5,000 UNITS/ML VIAL MC ONE (18:15)
[2023-02-01] MEDS: METHYLPREDNISOLONE SOD SUCC 40 MG/ML VIAL IVP SCH (23:05)
[2023-02-02] VITALS (42 sets, daily range): BP systolic 94–179; PULSE 59–92; RESP 14–33; TEMP 96–97.5; O2SAT 93–100
[2023-02-02 05:05] LABS: BASOPHILS # (AUTO) 0.5 K/uL (0.0-0.2); BASOPHILS % (AUTO) 2.1 % (0.0-2.0); EOSINOPHILS # (AUTO) 0.5 K/uL (0.0-0.4); EOSINOPHILS % (AUTO) 2.4 % (0.0-4.0); HEMATOCRIT 28.4 % (36-48); LYMPHOCYTES # (AUTO) 0.3 K/uL (1.0-5.5); LYMPHOCYTES % (AUTO) 1.3 % (20.5-51.5); MEAN CORPUSCULAR HEMOGLOBIN 27 pg (27-31); MEAN CORPUSCULAR HGB CONC 32 % (32-36); MEAN CORPUSCULAR VOLUME 83 fL (79.0-98.0); MONOCYTES # (AUTO) 0.1 K/uL (0.0-1.0); MONOCYTES % (AUTO) 0.6 % (1.7-9.3); NEUTROPHILS # (AUTO) 20.7 K/uL (1.8-7.7); NEUTROPHILS % (AUTO) 93.6 % (40.0-70.0); PLATELET COUNT (AUTO) 191 K/uL (130-430); RED BLOOD CELL COUNT(AUTO) 3.41 MIL/uL (4.2-6.2); RED CELL DISTRIBUTION WIDTH 19.2 % (9.0-15.0); WHITE BLOOD COUNT (AUTO) 22.1 K/uL (4.8-10.8)
[2023-02-02 05:16] LABS: ERYTHROCYTE SEDIMENTATION RATE 45 MM/HR (0-20)
[2023-02-02 05:28] LABS: INR 1.1 (0.8-1.2); PROTHROMBIN TIME 11.5 SECS (9.5-12.5)
[2023-02-02 05:30] LABS: ALANINE AMINOTRANSFERASE 5 U/L (12-78); ALBUMIN 1.2 g/dL (3.4-4.8); ANION GAP 11 (5-15); ASPARTATE AMINOTRANSFERASE 12 U/L (10-37); CALCIUM 7.3 mg/dL (8.4-11.0); CARBON DIOXIDE 23 mmol/L (23-29); CHLORIDE 104 mmol/L (98-107); CREATININE 2.61 mg/dL (0.55-1.30); GLUCOSE 261 mg/dL (74-106); PHOSPHORUS 4.5 mg/dL (2.7-4.5); POTASSIUM 4.5 mmol/L (3.5-5.1); SODIUM SERUM 138 mmol/L (136-145); TOTAL BILIRUBIN 0.4 mg/dL (0.0-1.0); TOTAL PROTEIN, SERUM 4.7 g/dL (6.4-8.3); UREA NITROGEN, BLOOD 62 mg/dL (8-21)
[2023-02-02] MEDS: PIPERACILLIN/TAZO 4.5GM/DEX-IS 100 ML IV SCH ×2 (05:51→14:33)
[2023-02-02] MEDS: DIPHENHYDRAMINE HCL 12.5 MG/5 ML UDC PO SCH ×4 (05:51→23:46)
[2023-02-02] MEDS: METHYLPREDNISOLONE SOD SUCC 40 MG/ML VIAL IVP SCH ×2 (08:58→20:39)
[2023-02-02] MEDS: FAMOTIDINE PF 20 MG/2 ML VIAL IVP SCH (08:58)
[2023-02-02] MEDS: MICAFUNGIN SODIUM 100 MG in NS 100 ML IV SCH (08:59)
[2023-02-02] MEDS: APIXABAN 2.5 MG TABLET PO SCH ×2 (09:00→19:46)
[2023-02-02] MEDS ORDERED: CALCIUM GLUC 2 GM/100ML-NACL 100 ML IV ONE (11:15)
[2023-02-02] MEDS: VANCOMYCIN HCL 1,250 MG in NS 250 ML IV SCH (11:24)
[2023-02-02] MEDS: FUROSEMIDE 100 MG in D5W 90 ML IV SCH ×2 (11:25→20:41)
[2023-02-02] MEDS: PROPOFOL DRIP 100 ML IV PRN (17:13)
[2023-02-02] MEDS: PIPERACILLIN/TAZO 2.25G/DEX-IS 50 ML IV SCH (20:37)
[2023-02-02] MEDS: NOREPINEPHRINE BITARTRATE 16 MG in NS 234 ML IV PRN (20:42)
[2023-02-02 22:04] LABS: URINE SODIUM, RANDOM 82 mmol/L (40-220)
[2023-02-03] VITALS (36 sets, daily range): BP systolic 90–139; PULSE 73–101; RESP 22–34; TEMP 96.1–98.7; O2SAT 93–98
[2023-02-03] MEDS: PROPOFOL DRIP 100 ML IV PRN ×5 (01:03→22:05)
[2023-02-03 05:32] LABS: BASOPHILS # (AUTO) 0.1 K/uL (0.0-0.2); BASOPHILS % (AUTO) 0.7 % (0.0-2.0); EOSINOPHILS # (AUTO) 0.3 K/uL (0.0-0.4); EOSINOPHILS % (AUTO) 2.6 % (0.0-4.0); HEMATOCRIT 23.7 % (36-48); HEMOGLOBIN 7.7 g/dL (12.0-16.0); LYMPHOCYTES # (AUTO) 0.3 K/uL (1.0-5.5); LYMPHOCYTES % (AUTO) 2.2 % (20.5-51.5); MEAN CORPUSCULAR HEMOGLOBIN 27 pg (27-31); MEAN CORPUSCULAR HGB CONC 32 % (32-36); MEAN CORPUSCULAR VOLUME 83 fL (79.0-98.0); MONOCYTES # (AUTO) 0.1 K/uL (0.0-1.0); MONOCYTES % (AUTO) 0.9 % (1.7-9.3); NEUTROPHILS # (AUTO) 12.6 K/uL (1.8-7.7); NEUTROPHILS % (AUTO) 93.6 % (40.0-70.0); PLATELET COUNT (AUTO) 147 K/uL (130-430); RED BLOOD CELL COUNT(AUTO) 2.87 MIL/uL (4.2-6.2); RED CELL DISTRIBUTION WIDTH 18.4 % (9.0-15.0); WHITE BLOOD COUNT (AUTO) 13.5 K/uL (4.8-10.8)
[2023-02-03 05:36] LABS: ERYTHROCYTE SEDIMENTATION RATE 12 MM/HR (0-20)
[2023-02-03] MEDS: DIPHENHYDRAMINE HCL 12.5 MG/5 ML UDC PO SCH ×4 (05:40→22:52)
[2023-02-03] MEDS: PIPERACILLIN/TAZO 2.25G/DEX-IS 50 ML IV SCH ×3 (05:41→20:21)
[2023-02-03 05:46] LABS: ANION GAP 12 (5-15); CARBON DIOXIDE 24 mmol/L (23-29); CHLORIDE 102 mmol/L (98-107); CREATININE 2.33 mg/dL (0.55-1.30); GLUCOSE 301 mg/dL (74-106); SODIUM SERUM 138 mmol/L (136-145); UREA NITROGEN, BLOOD 54 mg/dL (8-21)
[2023-02-03 05:50] LABS: CALCIUM 6.9 mg/dL (8.4-11.0)
[2023-02-03] MEDS ORDERED: CALCIUM GLUCONATE 2 GM in NS 80 ML IV ONE (06:30)
[2023-02-03] MEDS ORDERED: HEPARIN SODIUM,PORCINE 5,000 UNITS/ML VIAL IVP ONE ×2 (08:30→09:00)
[2023-02-03] MEDS: MICAFUNGIN SODIUM 100 MG in NS 100 ML IV SCH (09:23)
[2023-02-03] MEDS: METHYLPREDNISOLONE SOD SUCC 40 MG/ML VIAL IVP SCH ×2 (09:24→20:21)
[2023-02-03] MEDS: FAMOTIDINE PF 20 MG/2 ML VIAL IVP SCH (09:24)
[2023-02-03] MEDS ORDERED: ALBUMIN HUMAN 25% 100 ML IV ONE ×2 (10:01→10:30)
[2023-02-03] MEDS: FUROSEMIDE 100 MG in D5W 90 ML IV SCH ×2 (11:52→22:07)
[2023-02-03] MEDS ORDERED: IMMUNE GLOBULIN (IVIG) - GAMUNEX-C 10% 100 mL BOTTLE IV ONE (12:30)
[2023-02-03] MEDS: VANCOMYCIN HCL ORAL SOLUTION 125 MG/5 ML, 150 ML GT SCH ×2 (17:54→22:53)
[2023-02-04] VITALS (33 sets, daily range): BP systolic 102–153; PULSE 66–90; RESP 22–32; TEMP 96.2–98; O2SAT 93–99
[2023-02-04] MEDS: PROPOFOL DRIP 100 ML IV PRN ×3 (01:18→11:09)
[2023-02-04] MEDS: VANCOMYCIN HCL ORAL SOLUTION 125 MG/5 ML, 150 ML GT SCH ×4 (04:14→23:37)
[2023-02-04] MEDS: DIPHENHYDRAMINE HCL 12.5 MG/5 ML UDC PO SCH ×4 (04:15→23:38)
[2023-02-04] MEDS: PIPERACILLIN/TAZO 2.25G/DEX-IS 50 ML IV SCH ×3 (05:38→21:01)
[2023-02-04 06:27] LABS: BASOPHILS # (AUTO) 0.1 K/uL (0.0-0.2); BASOPHILS % (AUTO) 0.7 % (0.0-2.0); EOSINOPHILS # (AUTO) 0.3 K/uL (0.0-0.4); EOSINOPHILS % (AUTO) 2.3 % (0.0-4.0); HEMATOCRIT 22.4 % (36-48); HEMOGLOBIN 7.2 g/dL (12.0-16.0); LYMPHOCYTES # (AUTO) 0.3 K/uL (1.0-5.5); LYMPHOCYTES % (AUTO) 2.4 % (20.5-51.5); MEAN CORPUSCULAR HEMOGLOBIN 26 pg (27-31); MEAN CORPUSCULAR HGB CONC 32 % (32-36); MEAN CORPUSCULAR VOLUME 83 fL (79.0-98.0); MONOCYTES # (AUTO) 0.2 K/uL (0.0-1.0); MONOCYTES % (AUTO) 1.1 % (1.7-9.3); NEUTROPHILS # (AUTO) 13.7 K/uL (1.8-7.7); NEUTROPHILS % (AUTO) 93.5 % (40.0-70.0); PLATELET COUNT (AUTO) 151 K/uL (130-430); RED BLOOD CELL COUNT(AUTO) 2.71 MIL/uL (4.2-6.2); RED CELL DISTRIBUTION WIDTH 17.8 % (9.0-15.0); WHITE BLOOD COUNT (AUTO) 14.6 K/uL (4.8-10.8)
[2023-02-04 06:47] LABS: ANION GAP 11 (5-15); CARBON DIOXIDE 26 mmol/L (23-29); CHLORIDE 101 mmol/L (98-107); CREATININE 2.09 mg/dL (0.55-1.30); GLUCOSE 288 mg/dL (74-106); PHOSPHORUS 4.2 mg/dL (2.7-4.5); POTASSIUM 3.9 mmol/L (3.5-5.1); SODIUM SERUM 138 mmol/L (136-145); UREA NITROGEN, BLOOD 47 mg/dL (8-21)
[2023-02-04 06:48] LABS: CALCIUM 6.9 mg/dL (8.4-11.0)
[2023-02-04 07:43] LABS: ERYTHROCYTE SEDIMENTATION RATE 3 MM/HR (0-20)
[2023-02-04 08:10] LABS: ABG O2 SAT% ESTIMATE 95.3 % (94.0-100.0); BLOOD GAS BASE EXCESS 0.5 mmol/L (-3.0-3.0); BLOOD GAS HCO3 24.5 mmol/L (21.0-27.0); BLOOD GAS PCO2 37.6 mmHg (35.0-45.0); BLOOD GAS PH 7.432 (7.350-7.450); BLOOD GAS PO2 73.6 mmHg (75.0-100.0)
[2023-02-04] MEDS: METHYLPREDNISOLONE SOD SUCC 40 MG/ML VIAL IVP SCH ×2 (09:40→20:58)
[2023-02-04] MEDS: FAMOTIDINE PF 20 MG/2 ML VIAL IVP SCH (09:41)
[2023-02-04] MEDS: MICAFUNGIN SODIUM 100 MG in NS 100 ML IV SCH (09:42)
[2023-02-04] MEDS ORDERED: CALCIUM GLUC 2 GM/100ML-NACL 100 ML IV ONE (10:30)
[2023-02-04] MEDS: VANCOMYCIN HCL 1,250 MG in NS 250 ML IV SCH (11:58)
[2023-02-04] MEDS ORDERED: ePHEDrine sulfate 50 MG/ML VIAL ONE (13:00)
[2023-02-04] MEDS ORDERED: LR 1,000 ML IV.SOLN IV ONE (13:00)
[2023-02-04] MEDS ORDERED: SEVOFLURANE 15 MIN GAS INH ONE (13:00)
[2023-02-04] MEDS ORDERED: PROPOFOL 200MG/ 20ML VIAL (DIPRIVAN) IV ONE (13:00)
[2023-02-04] MEDS ORDERED: WATER FOR IRRIGATION,STERILE 1,000 ML IRRIG.SOLN IR ONE (13:00)
[2023-02-04] MEDS ORDERED: BUPIVACAINE /PF 0.25% 30 ML VIAL INJ ONE (13:00)
[2023-02-04] MEDS ORDERED: ROCURONIUM BROMIDE 10 MG/ML (ZEMURON) ONE (13:00)
[2023-02-04] MEDS ORDERED: LIDOCAINE/EPI 1% 1:100000 20 ML VIAL ONE (13:00)
[2023-02-04] MEDS ORDERED: NS IRRIG SOLN 1000 ML IR ONE (13:00)
[2023-02-05] VITALS (33 sets, daily range): BP systolic 92–154; PULSE 62–104; RESP 20–29; TEMP 96–98.1; O2SAT 95–99
[2023-02-05 05:03] LABS: ERYTHROCYTE SEDIMENTATION RATE 5 MM/HR (0-20)
[2023-02-05 05:10] LABS: BASOPHILS # (AUTO) 0.1 K/uL (0.0-0.2); BASOPHILS % (AUTO) 0.6 % (0.0-2.0); EOSINOPHILS # (AUTO) 0.9 K/uL (0.0-0.4); HEMATOCRIT 24.6 % (36-48); HEMOGLOBIN 7.8 g/dL (12.0-16.0); LYMPHOCYTES # (AUTO) 0.4 K/uL (1.0-5.5); MEAN CORPUSCULAR HEMOGLOBIN 26 pg (27-31); MEAN CORPUSCULAR HGB CONC 32 % (32-36); MEAN CORPUSCULAR VOLUME 82 fL (79.0-98.0); MONOCYTES # (AUTO) 0.2 K/uL (0.0-1.0); MONOCYTES % (AUTO) 0.7 % (1.7-9.3); NEUTROPHILS # (AUTO) 20.1 K/uL (1.8-7.7); NEUTROPHILS % (AUTO) 92.7 % (40.0-70.0); PLATELET COUNT (AUTO) 170 K/uL (130-430); RED BLOOD CELL COUNT(AUTO) 2.98 MIL/uL (4.2-6.2); RED CELL DISTRIBUTION WIDTH 17.7 % (9.0-15.0); WHITE BLOOD COUNT (AUTO) 21.7 K/uL (4.8-10.8)
[2023-02-05 05:46] LABS: ALANINE AMINOTRANSFERASE 10 U/L (12-78); ALBUMIN 1.7 g/dL (3.4-4.8); ANION GAP 15 (5-15); ASPARTATE AMINOTRANSFERASE 15 U/L (10-37); CARBON DIOXIDE 23 mmol/L (23-29); CHLORIDE 95 mmol/L (98-107); CREATININE 2.61 mg/dL (0.55-1.30); GLUCOSE 247 mg/dL (74-106); PHOSPHORUS 5.6 mg/dL (2.7-4.5); POTASSIUM 3.9 mmol/L (3.5-5.1); SODIUM SERUM 133 mmol/L (136-145); TOTAL BILIRUBIN 0.5 mg/dL (0.0-1.0); TOTAL PROTEIN, SERUM 4.5 g/dL (6.4-8.3); UREA NITROGEN, BLOOD 60 mg/dL (8-21)
[2023-02-05 05:48] LABS: CALCIUM 6.9 mg/dL (8.4-11.0)
[2023-02-05] MEDS: DIPHENHYDRAMINE HCL 12.5 MG/5 ML UDC PO SCH ×4 (05:49→23:25)
[2023-02-05] MEDS: PIPERACILLIN/TAZO 2.25G/DEX-IS 50 ML IV SCH (05:49)
[2023-02-05] MEDS: VANCOMYCIN HCL ORAL SOLUTION 125 MG/5 ML, 150 ML GT SCH ×4 (05:49→23:25)
[2023-02-05] MEDS: PROPOFOL DRIP 100 ML IV PRN ×4 (05:51→20:54)
[2023-02-05] MEDS ORDERED: CALCIUM GLUCONATE 2 GM in NS 80 ML IV ONE (07:00)
[2023-02-05] MEDS ORDERED: METHYLPREDNISOLONE SOD SUCC 40 MG/ML VIAL IVP ONE (08:15)
[2023-02-05] MEDS: FAMOTIDINE PF 20 MG/2 ML VIAL IVP SCH (08:36)
[2023-02-05] MEDS ORDERED: NOREPINEPHRINE 4 MG/4 ML VIAL IV ONE (13:56)
[2023-02-05] MEDS ORDERED: TRANEXAMIC ACID 1,000 MG/10 ML VIAL IV ONE (14:30)
[2023-02-05] MEDS ORDERED: LORazepam 2 MG/ML VIAL IVP PRN (14:45)
[2023-02-05] MEDS ORDERED: MORPHINE 2 MG/ML INJ. SYRINGE IVP PRN (14:45)
[2023-02-05] MEDS: AZTREONAM 1 GM in NS 50 ML IV SCH (14:58)
[2023-02-05] MEDS: METHYLPREDNISOLONE SOD SUCC 40 MG/ML VIAL IVP SCH ×2 (14:59→21:02)
[2023-02-05] MEDS ORDERED: TRANEXAMIC ACID IV ONE (16:00)
[2023-02-05] MEDS ORDERED: NS IV ONE (16:00)
[2023-02-06] VITALS (32 sets, daily range): BP systolic 92–187; PULSE 62–105; RESP 2–32; TEMP 96.1–98; O2SAT 93–100
[2023-02-06] MEDS: AZTREONAM 1 GM in NS 50 ML IV SCH ×2 (00:32→12:17)
[2023-02-06 00:58] LABS: BILIRUBIN,URINE NEGATIVE (NEGATIVE); COLOR,URINE YELLOW (YELLOW); GLUCOSE,URINE NEGATIVE (NEGATIVE); KETONES,URINE NEGATIVE (NEGATIVE); NITRITE, URINE NEGATIVE (NEGATIVE); PROTEIN URINE 3+ (NEGATIVE); UROBILINOGEN,URINE 0.2 (0.2-1.0)
[2023-02-06 01:06] LABS: CLARITY/URINE CLOUDY (CLEAR)
[2023-02-06 01:07] LABS: BLOOD, URINE 2+ (NEGATIVE); LEUKOCYTE ESTERASE ,URINE NEGATIVE (NEGATIVE)
[2023-02-06 01:10] LABS: BACTERIA,URINE RARE /HPF (None Seen); WBC,URINE 0-3 /HPF (0-3)
[2023-02-06 01:11] LABS: YEAST,URINE Many /HPF (None Seen)
[2023-02-06] MEDS: PROPOFOL DRIP 100 ML IV PRN ×3 (03:39→18:07)
[2023-02-06] MEDS: DIPHENHYDRAMINE HCL 12.5 MG/5 ML UDC PO SCH ×4 (05:46→23:42)
[2023-02-06] MEDS: VANCOMYCIN HCL ORAL SOLUTION 125 MG/5 ML, 150 ML GT SCH ×4 (05:46→23:42)
[2023-02-06 06:03] LABS: BASOPHILS # (AUTO) 0.2 K/uL (0.0-0.2); EOSINOPHILS # (AUTO) 0.5 K/uL (0.0-0.4); EOSINOPHILS % (AUTO) 2.1 % (0.0-4.0); HEMATOCRIT 25.6 % (36-48); HEMOGLOBIN 8.2 g/dL (12.0-16.0); LYMPHOCYTES # (AUTO) 0.7 K/uL (1.0-5.5); LYMPHOCYTES % (AUTO) 2.7 % (20.5-51.5); MEAN CORPUSCULAR HEMOGLOBIN 27 pg (27-31); MEAN CORPUSCULAR HGB CONC 32 % (32-36); MEAN CORPUSCULAR VOLUME 85 fL (79.0-98.0); MONOCYTES # (AUTO) 0.3 K/uL (0.0-1.0); MONOCYTES % (AUTO) 1.1 % (1.7-9.3); NEUTROPHILS # (AUTO) 22.8 K/uL (1.8-7.7); NEUTROPHILS % (AUTO) 93.1 % (40.0-70.0); PLATELET COUNT (AUTO) 170 K/uL (130-430); RED BLOOD CELL COUNT(AUTO) 3.01 MIL/uL (4.2-6.2); RED CELL DISTRIBUTION WIDTH 17.5 % (9.0-15.0); WHITE BLOOD COUNT (AUTO) 24.4 K/uL (4.8-10.8)
[2023-02-06] MEDS: METHYLPREDNISOLONE SOD SUCC 40 MG/ML VIAL IVP SCH ×3 (06:40→22:00)
[2023-02-06 07:09] LABS: ALANINE AMINOTRANSFERASE 11 U/L (12-78); ALBUMIN 1.7 g/dL (3.4-4.8); ANION GAP 16 (5-15); ASPARTATE AMINOTRANSFERASE 14 U/L (10-37); CARBON DIOXIDE 21 mmol/L (23-29); CHLORIDE 98 mmol/L (98-107); CREATININE 3.03 mg/dL (0.55-1.30); GLUCOSE 251 mg/dL (74-106); POTASSIUM 4.2 mmol/L (3.5-5.1); SODIUM SERUM 135 mmol/L (136-145); TOTAL BILIRUBIN 0.5 mg/dL (0.0-1.0); TOTAL PROTEIN, SERUM 4.4 g/dL (6.4-8.3); UREA NITROGEN, BLOOD 75 mg/dL (8-21)
[2023-02-06 07:20] LABS: CALCIUM 6.6 mg/dL (8.4-11.0)
[2023-02-06 07:28] LABS: PROTHROMBIN TIME 10.2 SECS (9.5-12.5)
[2023-02-06] MEDS: metroNIDAZOLE 250 mg/NS 50 ML IV SCH ×3 (10:06→22:00)
[2023-02-06] MEDS: FAMOTIDINE PF 20 MG/2 ML VIAL IVP SCH (10:06)
[2023-02-06] MEDS ORDERED: CALCIUM GLUC 2 GM/100ML-NACL 100 ML IV ONE (11:00)
[2023-02-06] MEDS ORDERED: hydrALAZINE HCL 20 MG/ML VIAL IVP PRN (18:15)
[2023-02-06] MEDS ORDERED: CARVEDILOL 12.5 MG TABLET (COREG) PO ONE (18:15)
[2023-02-07] VITALS (32 sets, daily range): BP systolic 134–182; PULSE 56–99; RESP 11–28; TEMP 96.1–97; O2SAT 96–99
[2023-02-07] MEDS: AZTREONAM 1 GM in NS 50 ML IV SCH ×2 (00:50→12:20)
[2023-02-07 05:12] LABS: BASOPHILS # (AUTO) 0.1 K/uL (0.0-0.2); BASOPHILS % (AUTO) 0.4 % (0.0-2.0); EOSINOPHILS # (AUTO) 1.6 K/uL (0.0-0.4); EOSINOPHILS % (AUTO) 9.6 % (0.0-4.0); HEMATOCRIT 23.3 % (36-48); HEMOGLOBIN 7.7 g/dL (12.0-16.0); LYMPHOCYTES # (AUTO) 0.8 K/uL (1.0-5.5); LYMPHOCYTES % (AUTO) 4.5 % (20.5-51.5); MEAN CORPUSCULAR HEMOGLOBIN 28 pg (27-31); MEAN CORPUSCULAR HGB CONC 33 % (32-36); MEAN CORPUSCULAR VOLUME 85 fL (79.0-98.0); MONOCYTES # (AUTO) 0.3 K/uL (0.0-1.0); NEUTROPHILS # (AUTO) 14.2 K/uL (1.8-7.7); NEUTROPHILS % (AUTO) 83.5 % (40.0-70.0); PLATELET COUNT (AUTO) 157 K/uL (130-430); RED BLOOD CELL COUNT(AUTO) 2.75 MIL/uL (4.2-6.2); RED CELL DISTRIBUTION WIDTH 17.4 % (9.0-15.0)
[2023-02-07 05:22] LABS: ALANINE AMINOTRANSFERASE 12 U/L (12-78); ALBUMIN 1.6 g/dL (3.4-4.8); ANION GAP 17 (5-15); ASPARTATE AMINOTRANSFERASE 14 U/L (10-37); CALCIUM 7.9 mg/dL (8.4-11.0); CARBON DIOXIDE 22 mmol/L (23-29); CHLORIDE 98 mmol/L (98-107); CREATININE 2.87 mg/dL (0.55-1.30); GLUCOSE 204 mg/dL (74-106); POTASSIUM 3.8 mmol/L (3.5-5.1); SODIUM SERUM 137 mmol/L (136-145); TOTAL BILIRUBIN 0.4 mg/dL (0.0-1.0); TOTAL PROTEIN, SERUM 4.5 g/dL (6.4-8.3); UREA NITROGEN, BLOOD 65 mg/dL (8-21)
[2023-02-07] MEDS: PROPOFOL DRIP 100 ML IV PRN ×3 (05:45→20:16)
[2023-02-07] MEDS: VANCOMYCIN HCL ORAL SOLUTION 125 MG/5 ML, 150 ML GT SCH ×2 (05:46→12:40)
[2023-02-07] MEDS: METHYLPREDNISOLONE SOD SUCC 40 MG/ML VIAL IVP SCH ×3 (05:47→21:49)
[2023-02-07] MEDS: DIPHENHYDRAMINE HCL 12.5 MG/5 ML UDC PO SCH ×2 (05:47→12:00)
[2023-02-07] MEDS: metroNIDAZOLE 250 mg/NS 50 ML IV SCH ×3 (05:47→21:49)
[2023-02-07] MEDS: FAMOTIDINE PF 20 MG/2 ML VIAL IVP SCH (08:06)
[2023-02-07] MEDS ORDERED: ENOXAPARIN SODIUM 30 MG/0.3 ML SYRINGE SUBCUT ONE (10:15)
[2023-02-07] MEDS ORDERED: IMMUNE GLOBULIN (IVIG) - GAMUNEX-C 10% 100 mL BOTTLE IV ONE (10:30)
[2023-02-07] MEDS ORDERED: DIPHENHYDRAMINE INJ 50 MG/ML VIAL IVP ONE (12:15)
[2023-02-07] MEDS ORDERED: HEPARIN SODIUM,PORCINE 5,000 UNITS/ML VIAL MC ONE (19:45)
[2023-02-08] VITALS (18 sets, daily range): BP systolic 133–180; PULSE 2–159; RESP 19–29; TEMP 96.2–97.8; O2SAT 96–98
[2023-02-08] MEDS: AZTREONAM 1 GM in NS 50 ML IV SCH (00:44)
[2023-02-08] MEDS: PROPOFOL DRIP 100 ML IV PRN (02:26)
[2023-02-08] MEDS: metroNIDAZOLE 250 mg/NS 50 ML IV SCH (06:02)
[2023-02-08] MEDS: METHYLPREDNISOLONE SOD SUCC 40 MG/ML VIAL IVP SCH (06:02)
[2023-02-08] MEDS: DIPHENHYDRAMINE HCL 12.5 MG/5 ML UDC PO SCH (06:02)
[2023-02-08] MEDS: VANCOMYCIN HCL ORAL SOLUTION 125 MG/5 ML, 150 ML GT SCH (06:02)
[2023-02-08 06:39] LABS: BASOPHILS % (AUTO) 0.3 % (0.0-2.0); EOSINOPHILS # (AUTO) 0.3 K/uL (0.0-0.4); EOSINOPHILS % (AUTO) 2.3 % (0.0-4.0); HEMATOCRIT 29.4 % (36-48); HEMOGLOBIN 9.8 g/dL (12.0-16.0); LYMPHOCYTES # (AUTO) 0.9 K/uL (1.0-5.5); MEAN CORPUSCULAR HEMOGLOBIN 28 pg (27-31); MEAN CORPUSCULAR HGB CONC 33 % (32-36); MEAN CORPUSCULAR VOLUME 84 fL (79.0-98.0); MONOCYTES # (AUTO) 0.2 K/uL (0.0-1.0); MONOCYTES % (AUTO) 1.2 % (1.7-9.3); NEUTROPHILS # (AUTO) 12.9 K/uL (1.8-7.7); NEUTROPHILS % (AUTO) 90.2 % (40.0-70.0); PLATELET COUNT (AUTO) 166 K/uL (130-430); RED BLOOD CELL COUNT(AUTO) 3.51 MIL/uL (4.2-6.2); RED CELL DISTRIBUTION WIDTH 17.7 % (9.0-15.0); WHITE BLOOD COUNT (AUTO) 14.3 K/uL (4.8-10.8)
[2023-02-08 06:58] LABS: ANION GAP 12 (5-15); CALCIUM 7.8 mg/dL (8.4-11.0); CARBON DIOXIDE 24 mmol/L (23-29); CHLORIDE 98 mmol/L (98-107); CREATININE 2.47 mg/dL (0.55-1.30); GLUCOSE 266 mg/dL (74-106); POTASSIUM 4.1 mmol/L (3.5-5.1); SODIUM SERUM 134 mmol/L (136-145); UREA NITROGEN, BLOOD 57 mg/dL (8-21)
[2023-02-08] MEDS ORDERED: LEVOTHYROXINE SODIUM 0.112 MG TABLET PO ONE (08:00)
[2023-02-08] MEDS ORDERED: LORazepam INJ IVP (08:57)
[2023-02-08] MEDS ORDERED: DIPH-934 PO (08:57)
[2023-02-08] MEDS ORDERED: LOVI30 SUBCUT (08:57)
[2023-02-08] MEDS ORDERED: LEVO112T2 PO (08:57)
[2023-02-08] MEDS ORDERED: PEPI20 IVP (08:57)
[2023-02-08] MEDS ORDERED: CALMO120 TP (08:57)
[2023-02-08] MEDS ORDERED: ALBU2.5V7 INH (08:57)
[2023-02-08] MEDS ORDERED: VANC25SO GT (08:57)
[2023-02-08] MEDS ORDERED: HYDR20VI5 IVP (08:57)
[2023-02-08] MEDS ORDERED: METH40VI46 IVP (08:57)
[2023-02-08] MEDS ORDERED: ACET-2634 PO (08:57)
[2023-02-08] MEDS ORDERED: GUAI10LI14 PO (08:57)
[2023-02-08] MEDS ORDERED: [UNRECOGNIZED DRUG - CODE] IVP (08:57)
[2023-02-08] MEDS ORDERED: ENOXAPARIN SODIUM 30 MG/0.3 ML SYRINGE SUBCUT SCH (09:00)
[2023-02-08] MEDS ORDERED: FLAPM500 IV (09:02)
[2023-02-08] MEDS ORDERED: AZTR1VIA2 IJ (09:02)
[2023-02-09] MEDS ORDERED: LEVOTHYROXINE SODIUM 0.112 MG TABLET PO SCH (07:00)
== END 2023-02-08 10:34 | DRG 4 ==
LOC: SED 14:43 → STU 20:23 → SIC 01-20 04:55
PROVIDERS: ADMIT Specialist; ATTEND Specialist
PROC: 07B10ZX Excision of Right Neck Lymphatic, Open Approach, Diagnostic (ICD-10-PCS; principal; 2023-01-18)
PROC: 5A1955Z Respiratory Ventilation, Greater than 96 Consecutive Hours (ICD-10-PCS; 2023-01-20)
PROC: 0BH17EZ Insertion of Endotracheal Airway into Trachea, Via Natural or Artificial Opening (ICD-10-PCS; 2023-01-20)
PROC: 5A12012 Performance of Cardiac Output, Single, Manual (ICD-10-PCS; 2023-01-20)
PROC: 02HV33Z Insertion of Infusion Device into Superior Vena Cava, Percutaneous Approach (ICD-10-PCS; 2023-01-20)
PROC: B548ZZA Ultrasonography of Superior Vena Cava, Guidance (ICD-10-PCS; 2023-01-20)
PROC: 30233N1 Transfusion of Nonautologous Red Blood Cells into Peripheral Vein, Percutaneous Approach (ICD-10-PCS; 2023-01-28)
PROC: 5A1D70Z Performance of Urinary Filtration, Intermittent, Less than 6 Hours Per Day (ICD-10-PCS; 2023-02-01)
PROC: 05HY33Z Insertion of Infusion Device into Upper Vein, Percutaneous Approach (ICD-10-PCS; 2023-02-01)
PROC: B54MZZA Ultrasonography of Right Upper Extremity Veins, Guidance (ICD-10-PCS; 2023-02-01)
PROC: 5A1D70Z Performance of Urinary Filtration, Intermittent, Less than 6 Hours Per Day (ICD-10-PCS; 2023-02-02)
PROC: 5A1D70Z Performance of Urinary Filtration, Intermittent, Less than 6 Hours Per Day (ICD-10-PCS; 2023-02-03)
PROC: 0B110Z4 Bypass Trachea to Cutaneous, Open Approach (ICD-10-PCS; 2023-02-04)
PROC: 0DB78ZX Excision of Stomach, Pylorus, Via Natural or Artificial Opening Endoscopic, Diagnostic (ICD-10-PCS; 2023-02-04)
PROC: 0DH63UZ Insertion of Feeding Device into Stomach, Percutaneous Approach (ICD-10-PCS; 2023-02-04)
PROC: 5A1D70Z Performance of Urinary Filtration, Intermittent, Less than 6 Hours Per Day (ICD-10-PCS; 2023-02-05)
PROC: 5A1D70Z Performance of Urinary Filtration, Intermittent, Less than 6 Hours Per Day (ICD-10-PCS; 2023-02-06)
PROC: 5A1D70Z Performance of Urinary Filtration, Intermittent, Less than 6 Hours Per Day (ICD-10-PCS; 2023-02-07)
DX: I26.99 Other pulmonary embolism without acute cor pulmonale (principal); A41.9 Sepsis, unspecified organism; J96.01 Acute respiratory failure with hypoxia; I21.A1 Myocardial infarction type 2; J69.0 Pneumonitis due to inhalation of food and vomit; J15.69 Pneumonia due to other Gram-negative bacteria; E43 Unspecified severe protein-calorie malnutrition; R65.21 Severe sepsis with septic shock; N17.0 Acute kidney failure with tubular necrosis; I82.413 Acute embolism and thrombosis of femoral vein, bilateral; A04.72 Enterocolitis due to Clostridium difficile, not specified as recurrent; D84.9 Immunodeficiency, unspecified; N39.0 Urinary tract infection, site not specified; I82.493 Acute embolism and thrombosis of other specified deep vein of lower extremity, bilateral; E03.9 Hypothyroidism, unspecified; I10 Essential (primary) hypertension; M32.9 Systemic lupus erythematosus, unspecified; D64.9 Anemia, unspecified; D69.6 Thrombocytopenia, unspecified; E83.39 Other disorders of phosphorus metabolism; E66.9 Obesity, unspecified; E83.51 Hypocalcemia; E87.5 Hyperkalemia; E83.52 Hypercalcemia; E87.6 Hypokalemia; K29.70 Gastritis, unspecified, without bleeding; K44.9 Diaphragmatic hernia without obstruction or gangrene; R73.9 Hyperglycemia, unspecified; E88.09 Other disorders of plasma-protein metabolism, not elsewhere classified; K31.7 Polyp of stomach and duodenum; Z79.899 Other long term (current) drug therapy; Z90.49 Acquired absence of other specified parts of digestive tract; Z88.8 Allergy status to other drugs, medicaments and biological substances; Z91.012 Allergy to eggs; Z79.01 Long term (current) use of anticoagulants; Z99.2 Dependence on renal dialysis; Z68.33 Body mass index [BMI] 33.0-33.9, adult
CPT/HCPCS: 36415; 36600; 71045; 71275; 73590-TC; 76376; 76770; 80048; 80053; 80202; 81000; 81003; 82272; 82570; 82607; 82728; 82746; 82784; 82803; 82962; 83540; 83550; 83605; 83615; 83690; 83735; 84100; 84132; 84302; 84484; 85007; 85025; 85027; 85044; 85379; 85384; 85610-TC; 85651-TC; 85730-TC; 86147; 86886; 86900; 86901; 86920; 87040; 87070-TC; 87081; 87086; 87205-TC; 87230-TC; 88304; 88305; 88307; 88312; 88313; 88341; 88342; 88361; 90935; 90937; 93005; 93306; 93970; 94002; 94003; 94640; 94664; 94760; 96365; 96375; 97110-GP; 97116-GP; 97530-GP; 99285; C1889; G0378; J0171; J0360; J0461; J0610; J0692; J0744; J1030; J1100; J1200; J1572; J1644; J1650; J1940; J2060; J2248; J2270; J2310; J2405; J2543; J2704; J3010; J3370; J3475; J3480; J3490; J7030; J7050; J7060; J7120; P9021; P9046; Q9967

== ENCOUNTER 2023-11-21 06:52 | Day surgery (SDC) | payer OTHER ==
[~2023-11-21] VITALS: Ht 162.6 cm; Wt 68.6 kg
[~2023-11-21 06:52] MED LIST changes: +ACET-2634 PO; +ALBU2.5V7 INH; +AZTR1VIA2 IJ; +CALMO120 TP; +DIPH-934 PO; +FLAPM500 IV; -FLUC100T41 PO; +GUAI10LI14 PO; -HYDR200T80 PO; +HYDR20VI5 IVP; -IBUP-1969 PO; +LEVO112T2 PO; -LEVO88TA2 PO; +LORazepam INJ IVP; +LOVI30 SUBCUT; +METH40VI46 IVP; +PEPI20 IVP; -PRED20TA PO; +VANC25SO GT; +[UNRECOGNIZED DRUG - CODE] IVP
[2023-11-21] MEDS ORDERED: fentaNYL CITRATE/PF 100 MCG/2 ML AMP ONE (06:58)
[2023-11-21] MEDS ORDERED: MIDAZOLAM HCL 5 MG/5 ML VIAL ONE (06:59)
[2023-11-21 12:14] VITALS: O2SAT 99
[2023-11-21 15:09] VITALS: BP_SYST 136; PULSE 62; RESP 18
== END 2023-11-21 09:35 | disposition home or self-care (01) ==
LOC: SDS 06:52 → SMU 06:54 → SDS 09:35
PROVIDERS: ATTEND Internal Medicine
DX: R13.10 Dysphagia, unspecified (principal); K29.50 Unspecified chronic gastritis without bleeding; K44.9 Diaphragmatic hernia without obstruction or gangrene; I10 Essential (primary) hypertension; E78.5 Hyperlipidemia, unspecified; E03.9 Hypothyroidism, unspecified; Z90.49 Acquired absence of other specified parts of digestive tract; Z91.012 Allergy to eggs; Z91.048 Other nonmedicinal substance allergy status; Z98.890 Other specified postprocedural states; Z79.890 Hormone replacement therapy; Z79.899 Other long term (current) drug therapy
CPT/HCPCS: 43239; 87081; 36415; 88305; 88312; 88313; G0378; J2250; J3010